=== PATIENT | female | born 1975 | race Caucasian/White ===

== ENCOUNTER 2017-05-22 23:54 | Inpatient (IN) | payer OTHER ==
[~2017-05-22] VITALS: Ht 160 cm; Wt 76.0 kg
[2017-05-22 23:55] VITALS: BP 123/83; PULSE 91; RESP 16; TEMP 98.1; O2SAT 99
[2017-05-23] VITALS (15 sets, daily range): BP systolic 106–116; BP diastolic 57–67; PULSE 79–116; RESP 15–18; TEMP 97.5–98.8; O2SAT 96–99
[2017-05-23] MEDS ORDERED: diphenhydrAMINE HCL 50 MG/ML VIAL IV PUSH ONE (00:15)
[2017-05-23] MEDS ORDERED: METOCLOPRAMIDE HCL 10 MG/2 ML VIAL IV PUSH ONE (00:15)
--- NOTE | 2017-05-23 00:38 | RADRPT ---
EXAM DATE/TIME: 05/23/2017 00:27 [facility] COMPARISON: No previous studies available for comparison. INDICATIONS : headaches with nausea and vomiting. RADIATION DOSE: 56.35 CTDIvol (mGy) MEDICAL HISTORY : None SURGICAL HISTORY : None. ENCOUNTER: Initial ACUITY: 1 day PAIN SCALE: 9/10 LOCATION: cranial TECHNIQUE: Multiple contiguous axial images were obtained of the head. Using automated exposure control and adj ustment of the mA and/or kV according to patient size, radiation dose was kept as low as reasonably a chievable to obtain optimal diagnostic quality images. DICOM format image data is available electro nically for review and comparison. FINDINGS: There is subarachnoid hemorrhages they are seen the sellar cistern. No mass effect or midline shift. No hydrocephalus. No acute cardiomegaly disease. CONCLUSION: 1. Positive for subarachnoid hemorrhage especially in the anterior interhemispheric fissure and supra sellar cistern. CTA pending to assess for aneurysm. Nakul Rojo MD on May 23, 2017 at 0:34 Board Certified Radiologist. This report was verified electronically.
[2017-05-23] MEDS ORDERED: HYDROmorphone HCL PF 1 MG/ML VIAL IV PUSH ONE (00:45)
[2017-05-23] MEDS ORDERED: HYDROmorphone HCL PF 2 MG/ML VIAL IV PUSH ONE (00:45)
[2017-05-23] MEDS ORDERED: LABETALOL HCL 100 MG/20 ML VIAL IV PUSH ONE (00:45)
[2017-05-23] MEDS ORDERED: ONDANSETRON HCL 4 MG/2 ML VIAL ONE (00:49)
[2017-05-23] MEDS ORDERED: ONDANSETRON HCL 4 MG/2 ML VIAL IV PUSH ONE (01:00)
[2017-05-23] MEDS ORDERED: LORazepam 2 MG/ML VIAL IV PUSH ONE (01:00)
[2017-05-23] MEDS ORDERED: IOHEXOL 350 MG/ML 10 ML VIAL (for RAD DIAG) IVCONTRAST ONE (01:14)
[2017-05-23] MEDS ORDERED: CHLORHEXIDINE GLUCONATE 2 % 1 PACK (2 CLOTHS) TOP PRN (01:15)
[2017-05-23] MEDS ORDERED: SODIUM CHLORIDE 0.9% FLUSH 10 ML FLUSH IV FLUSH PRN (01:15)
[2017-05-23] MEDS ORDERED: LACTULOSE SYRUP 20 GM/30 ML CUP PO PRN (01:15)
[2017-05-23] MEDS ORDERED: ACETAMINOPHEN 325 MG TAB PO PRN (01:15)
[2017-05-23] MEDS ORDERED: RESP: ALBUTEROL 2.5 MG/IPRATROPIUM 0.5 MG NEB (PRN) INH (01:15)
[2017-05-23] MEDS ORDERED: MAGNESIUM HYDROXIDE SUSP 30 ML CUP PO PRN (01:15)
[2017-05-23] MEDS ORDERED: SODIUM CHLORIDE 0.9% FLUSH 10 ML FLUSH IVF PRN (01:15)
[2017-05-23] MEDS ORDERED: SENNOSIDES 8.6 MG TAB PO PRN (01:15)
[2017-05-23] MEDS ORDERED: MISCELLANEOUS NURSING INFORMATION XX SCH (01:15)
[2017-05-23] MEDS ORDERED: BISACODYL 10 MG SUPP RECTAL PRN (01:15)
[2017-05-23] MEDS ORDERED: ONDANSETRON HCL 4 MG/2 ML VIAL IV PUSH PRN (01:15)
--- NOTE | 2017-05-23 01:23 | PD ---
HPI . Headache Chief Complaint: Headache Time Seen by Provider: 00:09 Travel History International Travel<30 days: No Contact w/Intl Traveler<30days: No Traveled to known affect area: No History of Present Illness HPI 41-year-old female. Past medical history complains of having sudden onset headache while climbing stairs. Patient flew down from [facility] today. The patient has no history of head trauma, no history of aneurysms or bleeding dyscrasias, no family history of same. Patient denies any focal weakness numbness or tingling. Headache is frontal. Denies any photophobia no seizure activity. Patient has no fever no chills no rashes no stiff neck PFSH Past Medical History Narrative Medical Past medical history reviewed Cardiovascular Problems: Yes (SVT) Thyroid Disease: Yes (HYPO) Tetanus Vaccination: < 5 Years Influenza Vaccination: Yes ?: Not LMP: 05/21/17 Past Surgical History Surgical History: No Previous Surgery Social History Alcohol Use: Yes Tobacco Use: No Substance Use: No Allergies-Medications (Allergen,Severity, Reaction): Coded Allergies: No Known Allergies (Unverified , 05/22/17) Narrative Medication Allergies and medications reviewed Review of Systems Except as stated in HPI: all other systems reviewed are Neg General / Constitutional: No: Fever Eyes: No: Visual changes HENT: Positive: Headaches Cardiovascular: No: Chest Pain or Discomfort Respiratory: No: Shortness of Breath Gastrointestinal: No: Abdominal Pain Genitourinary: No: Dysuria Musculoskeletal: No: Pain Skin: No Rash Neurologic: No: Weakness Psychiatric: No: Depression Endocrine: No: Polydipsia Hematologic/Lymphatic: No: Easy Bruising Physical Exam Narrative GENERAL: Awake alert oriented 3 no acute distress however patient appears uncomfortable. Vital signs afebrile normal and stable SKIN: Warm and dry. Is normal no diaphoresis cyanosis or pallor HEAD: Atraumatic. Normocephalic. EYES: Pupils equal and round. No scleral icterus. No injection or drainage. ENT: No nasal bleeding or discharge. Mucous membranes pink and moist. NECK: Trachea midline. No JVD. Supple nontender full range of motion no bruits CARDIOVASCULAR: Regular rate and rhythm. S1-S2 no murmurs rubs or gallops RESPIRATORY: No accessory muscle use. Clear to auscultation. Breath sounds equal bilaterally. GASTROINTESTINAL: Abdomen soft, non-tender, nondistended. Hepatic and splenic margins not palpable. MUSCULOSKELETAL: Extremities without clubbing, cyanosis, or edema. No obvious deformities. NEUROLOGICAL: Awake and alert. No obvious cranial nerve deficits. Motor grossly within normal limits. Five out of 5 muscle strength in the arms and legs. Normal speech. PSYCHIATRIC: Appropriate mood and affect; insight and judgment normal. Data Data Last Documented VS Vital Signs Date Time Temp Pulse Resp B/P (MAP) Pulse Ox O2 Delivery O2 Flow Rate FiO2 05/22/17 23:55 98.1 91 16 123/83 (96) 99 Room Air Orders Orders Iv Access Insert/Monitor (05/23/17 00:09) Metoclopramide Inj (Reglan Inj) (05/23/17 00:15) Diphenhydramine Inj (Benadryl Inj) (05/23/17 00:15) Ct Brain W/O Iv Contrast(Rout) (05/23/17 ) Cta Brain W Iv Contrast W 3d (05/23/17 ) Hydromorphone Pf Inj (Dilaudid Pf Inj) (05/23/17 00:45) Admit Order (Ed Use Only) (05/23/17 00:39) Labetalol Inj (Trandate Inj) (05/23/17 00:45) Cta Neck W Iv Contrast W 3d (05/23/17 ) Ondansetron Inj (Zofran Inj) (05/23/17 00:49) Ondansetron Inj (Zofran Inj) (05/23/17 01:00) Lorazepam Inj (Ativan Inj) (05/23/17 01:00) Complete Blood Count With Diff (05/23/17 01:10) Comprehensive Metabolic Panel (05/23/17 01:10) Beta Hcg (Quant/Titer) (05/23/17 01:10) Prothrombin Time / Inr (Pt) (05/23/17 01:10) Act Partial Throm Time (Ptt) (05/23/17 01:10) Ecg Monitoring (05/23/17 01:10) Oximetry (05/23/17 01:10) Sodium Chloride 0.9% Flush (Ns Flush) (05/23/17 01:15) Iohexol 350 Inj (Omnipaque 350 Inj) (05/23/17 01:14) Admit To Inpatient (05/23/17 ) Code Status (05/23/17 01:11) Vital Signs (Adult) PARVIZ.Q1H (05/23/17 01:11) Activity Bed Rest (05/23/17 01:11) Elevate Head Of Bed (05/23/17 01:11) Neuro Checks . ORDERED (05/23/17 01:11) Diet Npo (05/23/17 Breakfast) Ns + Kcl 20 Meq Inj (Ns + Kcl 20 Meq Inj (05/23/17 01:11) Sodium Chloride 0.9% Flush (Ns Flush) (05/23/17 01:15) Sodium Chloride 0.9% Flush (Ns Flush) (05/23/17 09:00) Acetaminophen (Tylenol) (05/23/17 01:15) Acetamin-Hydrocod 325-5 Mg (Natalbany 5-325 (05/23/17 01:15) Morphine Inj (Morphine Inj) (05/23/17 01:15) Famotidine Inj (Pepcid Inj) (05/23/17 09:00) Ondansetron Inj (Zofran Inj) (05/23/17 01:15) Metoclopramide Inj (Reglan Inj) (05/23/17 01:15) Albuterol-Ipratropium Neb (Duoneb Neb) (05/23/17 01:15) Complete Blood Count With Diff (05/24/17 04:00) Basic Metabolic Panel (Bmp) (05/24/17 04:00) Chest, Single Ap (05/23/17 06:00) Electrocardiogram (05/23/17 ) Resp Oxygen Simba C Titrat 1-4 L (05/23/17 ) Resp Pulse Oximetry (05/23/17 01:11) Clerical Clerk / Telemetry PARVIZ.Q8H (05/23/17 01:11) Scd Bilateral/Knee High PARVIZ.BID (05/23/17 01:11) ^ Initiate Protocol (05/23/17 01:11) Instruction (05/23/17 01:11) Misc Nursing Information (05/23/17 01:15) Chlorhexidine 2% Cloth (Chlorhexidine 2% (05/23/17 04:00) Chlorhexidine 2% Cloth (Chlorhexidine 2% (05/23/17 01:15) Mrsa Pcr Surveillance (05/23/17 01:11) Docusate Sodium-Senna (Malini-Colace) (05/23/17 09:00) Magnesium Hydroxide Liq (Milk Of Magnesi (05/23/17 01:15) Sennosides (Senokot) (05/23/17 01:15) Bisacodyl Supp (Dulcolax Supp) (05/23/17 01:15) Lactulose Liq (Lactulose Liq) (05/23/17 01:15) Inpatient Certification (05/23/17 ) [facility] Medical Decision Making Medical Screen Exam Complete: Yes Emergency Medical Condition: Yes Medical Record Reviewed: Yes Differential Diagnosis Subarachnoid hemorrhage, migraine headache, tension headache, sinusitis Narrative Course CT head performed shortly after patient's presentation, significant for frontal lobe subarachnoid hemorrhage. CTA performed. Case discussed with neurosurgery , case discussed with ICU, admitted with neurosurgery consult. Patient given allotted 1 mg IV push, Ativan 1 mg IV push, labetalol 5 mg IV push. Patient significant more comfortable after the above medications IV. Diagnosis Primary Impression: Subarachnoid hemorrhage Admitting Information Admitting Physician Requests: Admit Condition: Critical Juno Meraz MD May 23, 2017 01:23
[2017-05-23] MEDS ORDERED: ATEN25TA PO (01:24)
[2017-05-23 01:39] LABS: AUTOMATED NEUTROPHIL # 5.1 TH/MM3 (1.8-7.7); BASOPHIL # 0.1 TH/MM3 (0-0.2); BASOPHIL % 0.7 % (0.0-2.0); HEMATOCRIT 38.5 % (35.0-46.0); HEMOGLOBIN 13.1 GM/DL (11.6-15.3); LYMPH % 37.1 % (9.0-44.0); LYMPHOCYTE # 3.4 TH/MM3 (1.0-4.8); MEAN CELL VOLUME 94.1 FL (80.0-100.0); MEAN PLATELET VOLUME 7.1 FL (7.0-11.0); MONO % 6.7 % (0.0-8.0); MONOCYTE # 0.6 TH/MM3 (0-0.9); NEUT % 55.5 % (16.0-70.0); PLATELET COUNT 287 TH/MM3 (150-450); RED BLOOD COUNT 4.09 MIL/MM3 (4.00-5.30); RED CELL DISTRIBUTION WIDTH 13.4 % (11.6-17.2); WHITE BLOOD COUNT 9.1 TH/MM3 (4.0-11.0)
[2017-05-23 01:48] LABS: PROTHROMBIN TIME - PATIENT 10.1 SEC (9.8-11.6)
--- NOTE | 2017-05-23 01:51 | RADRPT ---
EXAM DATE/TIME: 05/23/2017 01:05 [facility] COMPARISON: No previous studies available for comparison. INDICATIONS : Subarchnoid hemorrhage. Evaluate for anuersym. IV CONTRAST: 80 cc Omnipaque 350 (iohexol) IV ; Cumulative dose for multiple exams. RADIATION DOSE: 11.64 CTDIvol (mGy) ; Combined studies MEDICAL HISTORY : None SURGICAL HISTORY : None. ENCOUNTER: Initial ACUITY: 1 day PAIN SCALE: 9/10 LOCATION: cranial TECHNIQUE: Volumetric scanning was performed using a multi-row detector CT scanner. The data was post processed with a variety of visualization algorithms including full volume maximum intensity projection, multi -planar sliding thin slab reformation, curved planar reformation, and surface rendering techniques. Using automated exposure control and adjustment of the mA and/or kV according to patient size, radiat ion dose was kept as low as reasonably achievable to obtain optimal diagnostic quality images. DICO M format image data is available electronically for review and comparison. FINDINGS: There is excellent visualization of the major intracranial arteries out to the second-order branch ve ssels. There is no evidence for aneurysm, vessel truncation or stenosis, and no evidence for vascula r malformation. CONCLUSION: 1. No aneurysm identified on CTA brain. There is subarachnoid hemorrhage present. Nakul Rojo MD on May 23, 2017 at 1:37 Board Certified Radiologist. This report was verified electronically.
--- NOTE | 2017-05-23 01:54 | RADRPT ---
EXAM DATE/TIME: 05/23/2017 01:08 [facility] COMPARISON: No previous studies available for comparison. INDICATIONS : Subarchnoid hemorrhage. Evaluate for stenosis. IV CONTRAST: 80 cc Omnipaque 350 (iohexol) IV ; Cumulative dose for multiple exams. RADIATION DOSE: 11.64 CTDIvol (mGy) ; Combined studies MEDICAL HISTORY : None SURGICAL HISTORY : None. ENCOUNTER: Initial ACUITY: 1 day PAIN SCALE: 0/10 LOCATION: neck Elevated flow velocities and ICA/CCA ratios have been found to correlate with increased degrees of vessel stenosis, calculated as percentage of diameter relative to a normal segment of distal ICA/CCA. TECHNIQUE: Volumetric scanning was performed using a multirow detector CT scanner. The data was post processed with a variety of visualization algorithms including full-volume maximum intensity projection, multip lanar sliding thin-slab reformation, curved-planar reformation, and surface-rendering techniques. Us ing automated exposure control and adjustment of the mA and/or kV according to patient size, radiatio n dose was kept as low as reasonably achievable to obtain optimal diagnostic quality images. DICOM f ormat image data is available electronically for review and comparison. FINDINGS: AORTIC ARCH: There is a three-vessel origin of the great vessels from the aorta. No evidence of ostial narrowing. RIGHT CAROTID: The common carotid artery is intact. The carotid bulb has a normal configuration without ulceration o r narrowing. The internal carotid artery lumen is smooth without stenosis. The external carotid maximus ry is intact. LEFT CAROTID: The common carotid artery is intact. The carotid bulb has a normal configuration without ulceration or narrowing. The internal carotid artery lumen is smooth without stenosis. The external carotid ar [place] is intact. VERTEBRALS: The vertebral arteries have a symmetric diameter. No stenotic lesions are seen. CONCLUSION: Normal examination for a patient of this age. Nakul Rojo MD on May 23, 2017 at 1:49 Board Certified Radiologist. This report was verified electronically.
--- NOTE | 2017-05-23 01:54 | HHI.HP ---
HPI Service Critical Care Medicine Primary Care Physician Non-Staff Admission Diagnosis SubArachnoid Hemorrhage Diagnosis: Travel History International Travel<30 Days: No Contact w/Intl Traveler <30 Da: No Traveled to Known Affected Are: No History of Present Illness HPI 41-year-old female. Past medical history complains of having sudden onset headache while climbing stairs. Patient flew down from [facility] today. The patient has no history of head trauma, no history of aneurysms or bleeding dyscrasias, no family history of same. Patient denies any focal weakness numbness or tingling. Headache is frontal. Denies any photophobia no seizure activity. Patient has no fever no chills no rashes no stiff neck. Head CT done in the ER revealed subarachnoid hemorrhage. CTA brain ordered. Neurosurgery was contacted by ER physician already. Patient accepted for admission by critical care medicine service. I evaluated the patient in the ER. At that time she was laying in the ER stretcher, complaining of a headache for out of 10 in intensity. Denied any visual or speech disturbance or any focal weakness involving her extremities. Denied any paresthesias. She did have nausea earlier. [facility] Past Medical History Narrative Medical Past medical history reviewed Cardiovascular Problems: Yes (SVT) Thyroid Disease: Yes (HYPO) Tetanus Vaccination: < 5 Years Influenza Vaccination: Yes ?: Not LMP: 05/21/17 Past Surgical History Surgical History: No Previous Surgery Social History Alcohol Use: Yes Tobacco Use: No Substance Use: No Allergies-Medications (Allergen,Severity, Reaction): Coded Allergies: No Known Allergies (Unverified , 05/22/17) Narrative Medication Allergies and medications reviewed Review of Systems Except as stated in HPI: all other systems reviewed are Neg General / Constitutional: No: Fever Eyes: No: Visual changes HENT: Positive: Headaches Cardiovascular: No: Chest Pain or Discomfort Respiratory: No: Shortness of Breath Gastrointestinal: No: Abdominal Pain Genitourinary: No: Dysuria Musculoskeletal: No: Pain Skin: No Rash Neurologic: No: Weakness Psychiatric: No: Depression Endocrine: No: Polydipsia Hematologic/Lymphatic: No: Easy Bruising Review of Systems ROS as per HPI Physical Exam Vital Signs Vital Signs Date Time Temp Pulse Resp B/P (MAP) Pulse Ox O2 Delivery O2 Flow Rate FiO2 05/23/17 01:30 98 05/23/17 01:24 98 Room Air 05/22/17 23:55 98.1 91 16 123/83 (96) 99 Room Air Physical Exam Physical Exam Narrative GENERAL: Awake alert oriented 3 no acute distress however patient appears uncomfortable. Vital signs afebrile normal and stable SKIN: Warm and dry. Is normal no diaphoresis cyanosis or pallor HEAD: Atraumatic. Normocephalic. EYES: Pupils equal and round. No scleral icterus. No injection or drainage. ENT: No nasal bleeding or discharge. Mucous membranes pink and moist. NECK: Trachea midline. No JVD. Supple nontender full range of motion no bruits CARDIOVASCULAR: Regular rate and rhythm. S1-S2 no murmurs rubs or gallops RESPIRATORY: No accessory muscle use. Clear to auscultation. Breath sounds equal bilaterally. GASTROINTESTINAL: Abdomen soft, non-tender, nondistended. Hepatic and splenic margins not palpable. MUSCULOSKELETAL: Extremities without clubbing, cyanosis, or edema. No obvious deformities. NEUROLOGICAL: Awake and alert. No obvious cranial nerve deficits. Motor grossly within normal limits. Five out of 5 muscle strength in the arms and legs. Normal speech. PSYCHIATRIC: Appropriate mood and affect; insight and judgment normal. Laboratory Laboratory Tests Test 05/23/17 01:10 White Blood Count 9.1 Red Blood Count 4.09 Hemoglobin 13.1 Hematocrit 38.5 Mean Corpuscular Volume 94.1 Mean Corpuscular Hemoglobin 32.0 Mean Corpuscular Hemoglobin Concent 34.0 Red Cell Distribution Width 13.4 Platelet Count 287 Mean Platelet Volume 7.1 Neutrophils (%) (Auto) 55.5 Lymphocytes (%) (Auto) 37.1 Monocytes (%) (Auto) 6.7 Eosinophils (%) (Auto) 0.0 Basophils (%) (Auto) 0.7 Neutrophils # (Auto) 5.1 Lymphocytes # (Auto) 3.4 Monocytes # (Auto) 0.6 Eosinophils # (Auto) 0.0 Basophils # (Auto) 0.1 CBC Comment DIFF FINAL Differential Comment Result Diagram: 05/23/[address] with subarachnoid hemorrhage CTA brain results pending Caprini VTE Risk Assessment Caprini VTE Risk Assessment: No/Low Risk (score <= 1) VTE Pharm Contraindication: Hemorrhage Caprini Risk Assessment Model Point Value = 1 Point Value = 2 Point Value = 3 Point Value = 5 Age 41-60 Minor surgery BMI > 25 kg/m2 Swollen legs Varicose veins or History of unexplained or recurrent spontaneous Oral contraceptives or hormone replacement Sepsis (< 1 month) Serious lung disease, including pneumonia (< 1 month) Abnormal pulmonary function Acute myocardial infarction Congestive heart failure (< 1 month) History of inflammatory bowel disease Medical patient at bed rest Age 61-74 Arthroscopic surgery Major open surgery (> 45 min) Laparoscopic surgery (> 45 min) Malignancy Confined to bed (> 72 hours) Immobilizing plaster cast Central venous access Age >= 75 History of VTE Family history of VTE Factor V Leiden Prothrombin [id number] Lupus anticoagulant Anticardiolipin antibodies Elevated serum homocysteine Heparin-induced thrombocytopenia Other congenital or acquired thrombophilia Stroke (< 1 month) Elective arthroplasty Hip, pelvis, or leg fracture Acute spinal cord injury (< 1 month) Prophylaxis Regimen Total Risk Factor Score Risk Level Prophylaxis Regimen 0-1 Low Early ambulation 2 Moderate Order ONE of the following: *Sequential Compression Device (SCD) *Heparin 5000 units SQ BID 3-4 Higher Order ONE of the following medications: *Heparin 5000 units SQ TID *Enoxaparin/Lovenox 40 mg SQ daily (WT < 150 kg, CrCl > 30 mL/min) *Enoxaparin/Lovenox 30 mg SQ daily (WT < 150 kg, CrCl > 10-29 mL/min) *Enoxaparin/Lovenox 30 mg SQ BID (WT < 150 kg, CrCl > 30 mL/min) AND/OR *Sequential Compression Device (SCD) 5 or more Highest Order ONE of the following medications: *Heparin 5000 units SQ TID (Preferred with Epidurals) *Enoxaparin/Lovenox 40 mg SQ daily (WT < 150 kg, CrCl > 30 mL/min) *Enoxaparin/Lovenox 30 mg SQ daily (WT < 150 kg, CrCl > 10-29 mL/min) *Enoxaparin/Lovenox 30 mg SQ BID (WT < 150 kg, CrCl > 30 mL/min) AND *Sequential Compression Device (SCD) Assessment and Plan Assessment and Plan 41 year-old female with: Subarachnoid hemorrhage Hypothyroidism History of SVT Plan: Neuro: Awaiting CTA head results to evaluate for aneurysm. Further recommendations per interventional radiology and neurosurgery based on CT findings. Repeat head CT in a.m. for follow-up on subarachnoid hemorrhage. Neurosurgery consult. ER physician has already spoken with Dr. Durán- neurosurgery. We'll initiate nimodipine. Further neuro imaging and management per neurosurgery and interventional radiology. Cardiovascular: IV hydration, watch for hypotension. Labetalol when necessary to keep SBP below 150 mmHg. Nicardipine drip keep SBP below 1 50 mmHg as needed. Pulmonary: Currently protecting airway. Bronchodilators as needed. GI/liver: Nothing by mouth for now. Renal/: Follow urine output, monitor and replete electrolytes, follow BUN/ creatinine. ID: No indication for antibiotics at this time. Heme: Follow CBC and coags. Endocrine: Watch for hyperglycemia, SSI for glycemic control if needed. Prophylaxis: Pepcid, SCDs. No heparin or Lovenox in view of subarachnoid hemorrhage till cleared by neurosurgery Condition critical Time for critical care excluding procedures 40 minutes Hernesto Waggoner MD May 23, 2017 01:54
[2017-05-23] MEDS ORDERED: LEVO100T5 PO (01:55)
[2017-05-23 01:59] LABS: ALBUMIN 3.9 GM/DL (3.4-5.0); ALT (GPT) 21 U/L (10-53); AST (GOT) 23 U/L (15-37); BICARBONATE 26.8 MEQ/L (21.0-32.0); BLOOD UREA NITROGEN 9 MG/DL (7-18); CALCIUM 8.2 MG/DL (8.5-10.1); CHLORIDE 103 MEQ/L (98-107); CREATININE 0.77 MG/DL (0.50-1.00); GLOMERULAR FILTRATION RATE 83 ML/MIN (>89); GLUCOSE,RANDOM 83 MG/DL (74-106); PHOSPHORUS 2.9 MG/DL (2.5-4.9); SODIUM (NA) 136 MEQ/L (136-145)
[2017-05-23] MEDS ORDERED: niMODipine 30 MG CAP PO SCH (02:00)
[2017-05-23] MEDS ORDERED: niCARdipine INJ 25 MG in SODIUM CHLOR 0.9% 250 ML INJ 240 ML IV PRN (02:00)
[2017-05-23] MEDS ORDERED: LABETALOL HCL 100 MG/20 ML VIAL IV PUSH PRN (02:00)
[2017-05-23] MEDS: NS + KCL 20 MEQ INJ 1,000 ML IV SCH ×3 (02:01→21:02)
[2017-05-23 02:03] LABS: ALKALINE PHOSPHATASE 75 U/L (45-117); TOTAL BILIRUBIN ADULT 0.2 MG/DL (0.2-1.0); TOTAL PROTEIN 7.7 GM/DL (6.4-8.2)
[2017-05-23] MEDS: METOCLOPRAMIDE HCL 10 MG/2 ML VIAL IV PUSH PRN ×2 (02:32→21:02)
--- NOTE | 2017-05-23 03:56 | HHI.NSPN ---
History Chief Complaint: Severe headache Interval History Patient presents to the ER with severe frontal headache. See formal consult for details Exam Results Vital Signs Date Time Temp Pulse Resp B/P (MAP) Pulse Ox O2 Delivery O2 Flow Rate FiO2 05/23/17 03:00 05/23/17 01:52 87 16 98 Nasal Cannula 2.00 05/22/17 23:55 98.1 Physical Examination Neurological exam reveals that the patient is lethargic. Awakens easily. Follows commands well. Oriented 3. Speech is fluent. Affect mildly depressed. Right-handed Cranial nerves intact Motor 5/5 Sensory intact to touch Deep tendon reflexes 1+ at all sites except the ankles which are trace Lab, Micro, Other Results CT of the head shows evidence of subarachnoid hemorrhage in the perimesencephalic cisterns and anterior interhemispheric space CT of the neck is unremarkable CT of the head shows no evidence of aneurysm Medical Decision Making Impression and Plan Impression: Spontaneous subarachnoid hemorrhage. No clear evidence for aneurysm. Please see formal consult when available Recommendations: Keep head elevated Neurochecks every hour Nimotop as ordered Maintain blood pressure control We will follow patient with you Thomas Durán MD May 23, 2017 03:56
[2017-05-23] MEDS: CHLORHEXIDINE GLUCONATE 2 % 1 PACK (2 CLOTHS) TOP SCH ×2 (04:00→19:57)
--- NOTE | 2017-05-23 04:34 | RADRPT ---
EXAM DATE/TIME: 05/23/2017 03:20 [facility] COMPARISON: No previous studies available for comparison. INDICATIONS : Evaluate for pneumonia- Headaches MEDICAL HISTORY : None. SURGICAL HISTORY : None. ENCOUNTER: Initial ACUITY: 1 day PAIN SCORE: 7/10 LOCATION: Bilateral chest FINDINGS: A single view of the chest demonstrates the lungs to be symmetrically aerated without evidence of mas s, infiltrate or effusion. The cardiomediastinal contours are unremarkable. Osseous structures are intact. CONCLUSION: No acute disease. Nakul Rojo MD on May 23, 2017 at 4:32 Board Certified Radiologist. This report was verified electronically.
[2017-05-23] MEDS: ACETAMINOPHEN/HYDROcodone 325 MG/5 MG TAB PO PRN ×4 (05:18→22:00)
[2017-05-23] MEDS: niMODipine 30 MG CAP PO SCH ×5 (06:09→20:51)
--- NOTE | 2017-05-23 07:10 | MB ---
cc: JACINTA BOYLE MD DATE OF CONSULTATION: 05/23/2017 CHIEF COMPLAINT: Headache. HISTORY OF PRESENT ILLNESS: This is a 41 year-old female patient presented to the emergency room with history of sudden severe headache. The headache was the worse she has ever had. The headache was in the frontal area. She had several episodes of vomiting. She denies any photophobia or any other type of symptomatology. CT scan of the brain was performed which showed subarachnoid hemorrhage and because of this, neurosurgery consult was placed, and the patient was admitted. PAST MEDICAL HISTORY: Remarkable for SVT and thyroid disease. PAST SURGICAL HISTORY: No previous surgery. 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 She uses alcohol occasionally. No tobacco use. No illegal drug use. ALLERGIES: None known. MEDICATIONS: Per the chart. REVIEW OF SYSTEMS: Unremarkable except as pertaining to the history as above. PHYSICAL EXAMINATION: VITAL SIGNS: Temperature 98.1, pulse 91, respiratory rate 16, blood pressure 123/83. GENERAL: A female patient who is slightly lethargic. HEENT: Unremarkable. NECK: Mild discomfort upon flexion. No significant rigidity seen. CHEST: Symmetric. LUNGS: Clear. HEART: Regular rhythm with normal heart sounds. ABDOMEN: Soft, nontender. EXTREMITIES: Clear. NEUROLOGIC: The patient is lethargic, follows commands well, and awakens easily. She is oriented x3. Speech is fluent. Affect is mildly depressed. Cranial nerves II through XII intact. Motor exam is 5+/5. Sensory exam intact to touch. Deep tendon reflexes are 1+ at all sides except the ankles which are trace. She has a negative Babinski bilaterally. IMAGING STUDIES: Review of CT scan of the brain shows evidence of subarachnoid blood in the perimesencephalic cisterns and anterior interhemispheric space. No significant mass effect. CTA of the neck was unremarkable. CTA of the head showed no clear evidence for aneurysm. OVERALL IMPRESSION Spontaneous subarachnoid hemorrhage. PLAN: Admit the patient for observation. She should be placed on Nimotop with neuro checks every hour. Blood pressure should remained controlled. Head should remain elevated to 30 degrees. MD CHEKO Cedillo/JEREL /3:41 AM /6:49 AM MTDD
[2017-05-23] MEDS: SODIUM CHLORIDE 0.9% FLUSH 10 ML FLUSH IV FLUSH SCH ×2 (08:30→20:51)
[2017-05-23] MEDS: MORPHINE SULFATE 2 MG/ML INJ IV PUSH PRN (08:34)
[2017-05-23] MEDS: DOCUSATE SODIUM 50 MG/SENNA 8.6 MG TAB PO SCH ×4 (08:35→20:51)
[2017-05-23] MEDS: FAMOTIDINE 20 MG/2 ML VIAL IV PUSH SCH ×2 (08:35→20:50)
[2017-05-23] MEDS ORDERED: VENL75TA PO (10:48)
--- NOTE | 2017-05-23 11:00 | HHI.NSPN ---
History Chief Complaint: Severe headache Interval History Patient seen earlier today. She continues to complain of headache Exam Results Vital Signs Date Time Temp Pulse Resp B/P (MAP) Pulse Ox O2 Delivery O2 Flow Rate FiO2 05/23/17 10:00 79 05/23/17 08:29 99 21 05/23/17 08:00 97.5 18 106/57 (73) 05/23/17 07:00 Room Air 05/23/17 01:52 2.00 Intake and Output 05/23/17 05/23/17 05/24/17 08:00 16:00 00:00 Intake Total 50 ml Balance 50 ml Physical Examination Patient is much more awake and alert. Follows commands well. Speech is fluent. Oriented 3. Cranial nerves intact. Moves all extremities well. Medical Decision Making Impression and Plan Impression: Spontaneous subarachnoid hemorrhage. No clear evidence for aneurysm. Discussed with patient and her sister present condition. Reviewed CT imaging with the patient and her sister using a nurse computer. Clinically patient appears improved Recommendations: Continue neurological observation Repeat CT in a.m. Will need repeat angiography in 5-10 days Thomas Durán MD May 23, 2017 11:00
[2017-05-23] MEDS: ONDANSETRON HCL 4 MG/2 ML VIAL IV PUSH PRN ×4 (11:59→23:12)
--- NOTE | 2017-05-23 14:40 | EKG ---
Date Performed: 05/23/2017 Time Performed: 01:31:22 PTAGE: 41 years EKG: Sinus rhythm NORMAL ECG NO PREVIOUS TRACING DOCTOR: John Morales Interpretating Date/Time 05/23/2017 14:38:02
[2017-05-24] VITALS (13 sets, daily range): BP systolic 104–126; BP diastolic 58–72; PULSE 78–100; RESP 12–22; TEMP 98–98.8; O2SAT 96–98
[2017-05-24] MEDS: niMODipine 30 MG CAP PO SCH ×6 (01:35→22:17)
[2017-05-24] MEDS: METOCLOPRAMIDE HCL 10 MG/2 ML VIAL IV PUSH PRN ×2 (01:35→11:16)
[2017-05-24] MEDS: ACETAMINOPHEN/HYDROcodone 325 MG/5 MG TAB PO PRN ×2 (02:29→06:55)
[2017-05-24] MEDS: ONDANSETRON HCL 4 MG/2 ML VIAL IV PUSH PRN ×5 (04:35→22:17)
--- NOTE | 2017-05-24 04:58 | RADRPT ---
EXAM DATE/TIME: 05/24/2017 04:22 [facility] COMPARISON: CT BRAIN W/O CONTRAST, May 23, 2017, 0:27. INDICATIONS : Follow up hemorrhage. RADIATION DOSE: 35.93 CTDIvol (mGy) MEDICAL HISTORY : Cardiovascular disease. SURGICAL HISTORY : None. ENCOUNTER: Subsequent ACUITY: 1 day PAIN SCALE: 0/10 LOCATION: cranial TECHNIQUE: Multiple contiguous axial images were obtained of the head. Using automated exposure control and adj ustment of the mA and/or kV according to patient size, radiation dose was kept as low as reasonably a chievable to obtain optimal diagnostic quality images. DICOM format image data is available electro nically for review and comparison. FINDINGS: CEREBRUM: The ventricles are normal for age. No evidence of midline shift, mass lesion,or acute infarction. Th e subtle subarachnoid hemorrhage is less conspicuous and not well-visualized on the current study. Th ere is mild residual in the suprasellar region. No extra-axial fluid collections are seen. POSTERIOR FOSSA: The cerebellum and brainstem are intact. The 4th ventricle is midline. The cerebellopontine angle i s unremarkable. EXTRACRANIAL: The visualized portion of the orbits is intact. SKULL: The calvaria is intact. No evidence of skull fracture. CONCLUSION: 1. Interval improvement sub-arachnoid hemorrhage with minimal residual. 2. No new hemorrhage or mass effect. Tony Gabriel MD on May 24, 2017 at 4:54 Board Certified Radiologist. This report was verified electronically.
[2017-05-24 05:13] LABS: AUTOMATED NEUTROPHIL # 3.8 TH/MM3 (1.8-7.7); BASOPHIL # 0.1 TH/MM3 (0-0.2); BASOPHIL % 1.1 % (0.0-2.0); HEMATOCRIT 35.4 % (35.0-46.0); HEMOGLOBIN 12.1 GM/DL (11.6-15.3); LYMPH % 41.9 % (9.0-44.0); LYMPHOCYTE # 3.1 TH/MM3 (1.0-4.8); MEAN CELL VOLUME 94.5 FL (80.0-100.0); MEAN CORPUSCULAR HEMOGLOBIN 32.4 PG (27.0-34.0); MEAN CORPUSCULAR HGB CONC 34.3 % (32.0-36.0); MEAN PLATELET VOLUME 7.2 FL (7.0-11.0); MONO % 6.4 % (0.0-8.0); MONOCYTE # 0.5 TH/MM3 (0-0.9); NEUT % 50.6 % (16.0-70.0); PLATELET COUNT 271 TH/MM3 (150-450); RED BLOOD COUNT 3.75 MIL/MM3 (4.00-5.30); RED CELL DISTRIBUTION WIDTH 13.7 % (11.6-17.2); WHITE BLOOD COUNT 7.5 TH/MM3 (4.0-11.0)
[2017-05-24 05:35] LABS: BICARBONATE 25.8 MEQ/L (21.0-32.0); CALCIUM 8.3 MG/DL (8.5-10.1); CREATININE 0.74 MG/DL (0.50-1.00)
[2017-05-24] MEDS: NS + KCL 20 MEQ INJ 1,000 ML IV SCH ×2 (05:56→15:57)
--- NOTE | 2017-05-24 07:26 | HHI.CCPN ---
Subjective Remarks/Hospital Course 05/23: 41-year-old female. Past medical history complains of having sudden onset headache while climbing stairs. Patient flew down from [facility] today. The patient has no history of head trauma, no history of aneurysms or bleeding dyscrasias, no family history of same. Patient denies any focal weakness numbness or tingling. Headache is frontal. Denies any photophobia no seizure activity. Patient has no fever no chills no rashes no stiff neck. Head CT done in the ER revealed subarachnoid hemorrhage. CTA brain ordered. Neurosurgery was contacted by ER physician already. Patient accepted for admission by critical care medicine service. I evaluated the patient in the ER. At that time she was laying in the ER stretcher, complaining of a headache for out of 10 in intensity. Denied any visual or speech disturbance or any focal weakness involving her extremities. Denied any paresthesias. She did have nausea earlier. 05/24: No events over the night. Patient still c/o NICOLE and some nausea and vomiting. No other complaints. Repeat CT head in AM with improved SAH. Objective Vital Signs Date Time Temp Pulse Resp B/P (MAP) Pulse Ox O2 Delivery O2 Flow Rate FiO2 05/24/17 06:00 92 05/24/17 04:00 98.8 12 105/58 (74) 96 05/23/17 20:01 21 05/23/17 19:00 Room Air 05/23/17 01:52 2.00 Intake and Output 05/24/17 05/24/17 05/25/17 08:00 16:00 00:00 Intake Total 1225 ml Balance 1225 ml Result Diagram: 05/24/17 0348 05/24/17 0348 Imaging Head CTA: No aneurysm identified on CTA brain. There is subarachnoid hemorrhage present. Last [address] 05/24/17 0600 Signed Impressions: Service Date/Time: Wednesday, May 24, 2017 04:22 - CONCLUSION: 1. Interval improvement sub-arachnoid hemorrhage with minimal residual. 2. No new hemorrhage or mass effect. Tony Gabriel MD Objective Remarks Physical Exam General - middle age lady, awake, in no distress HEENT - pupils equal, reactive, sclerae anicteric, neck supple, no nuchal rigidity, neck veins not distended, no carotid bruit, MMM, no thrush CV - regular S1, S2, no murmurs Chest - clear b/l, good air entry, no wheezes Abdomen - soft, non-tender, non-distended, BS present, no hepatomegaly, no splenomegaly Skin - no rashes, no cyanosis Extremities - warm and well perfused, no edema, + peripheral pulses, no clubbing Neuro - awake, alert and oriented X 3, motor 5/5 over all extremities, sensation is intact, no pronator drift, smile symmetric, EOMI, tongue midline, shrugs shoulders, speech and hearing intact A/P Assessment and Plan 1. Spontaneous subarachnoid hemorrhage 2. Hypothyroidism 3. History of SVT Plan: 1. HOB elevation, maintain normothermia, avoid agitation 2. Nimodipine 3. Further imaging per NS if needed 4. Stat CTH with any change in neuro status 5. Neuro checks 6. Glycemic control 7. Pepcid, SCDs. No heparin or Lovenox in view of subarachnoid hemorrhage till cleared by neurosurgery Jacinto Jonas MD May 24, 2017 07:26
[2017-05-24] MEDS: FAMOTIDINE 20 MG/2 ML VIAL IV PUSH SCH ×2 (07:55→20:21)
[2017-05-24] MEDS: SODIUM CHLORIDE 0.9% FLUSH 10 ML FLUSH IV FLUSH SCH ×2 (07:55→20:21)
[2017-05-24] MEDS: DOCUSATE SODIUM 50 MG/SENNA 8.6 MG TAB PO SCH ×2 (07:55→20:21)
--- NOTE | 2017-05-24 11:04 | HHI.NSPN ---
(Sarmad Tidwell) History Chief Complaint: Severe headache (Sarmad Tidwell) Interval History 05/24/17: Pt complains of headaches intermittently frontal area with periods of nausea. She states the pain medication and antiemetics help. No muscle weakness on one side versus the other. No numbness or paresthesias in face or extremities. (Sarmad Tidwell) Review of Systems General: Negative for: fever, chills, insomnia Respiratory: Negative for: shortness of breath, cough, sputum Cardiovascular: Negative for: chest pain Gastrointestinal: Positive for: nausea, vomitting, Negative for: diarrhea, constipation (Sarmad Tidwell) Exam Results Vital Signs Date Time Temp Pulse Resp B/P (MAP) Pulse Ox O2 Delivery O2 Flow Rate FiO2 05/24/17 06:00 92 05/24/17 04:00 98.8 12 105/58 (74) 96 05/23/17 20:01 21 05/23/17 19:00 Room Air 05/23/17 01:52 2.00 Intake and Output 05/24/17 05/24/17 05/25/17 08:00 16:00 00:00 Intake Total 1225 ml Balance 1225 ml (Sarmad Tidwell) Physical Examination General: Pt awake and alert resting in bed with stable vitals. Eyes: Pupils equal. Sclera anicteric. Resp: CTA bilaterally Heart: NSR no murmurs Abd: Soft positive bs Skin: No cyanosis or erythema Muscle: Moves all 4 extremities symmetrically with 5/5 strength. Neuro: Pt awake and alert. Sitting up in bed. Asks appropriate questions. Speech is clear and fluent. Pupils 3mm bilaterally reactive bilaterally. Follows commands well. Face symmetric. (Sarmad Tidwell) Lab, Micro, Other Results Last Impressions Head CT 05/24/17 0600 Signed Impressions: Service Date/Time: Wednesday, May 24, 2017 04:22 - CONCLUSION: 1. Interval improvement sub-arachnoid hemorrhage with minimal residual. 2. No new hemorrhage or mass effect. Tony Gabriel MD Chest X-Ray 05/23/17 0600 Signed Impressions: Service Date/Time: Tuesday, May 23, 2017 03:20 - CONCLUSION: No acute disease. Nakul Rojo MD Neck CTA 05/23/17 0000 Signed Impressions: Service Date/Time: Tuesday, May 23, 2017 01:08 - CONCLUSION: Normal examination for a patient of this age. Nakul Rojo MD Head CTA 05/23/17 0000 Signed Impressions: Service Date/Time: Tuesday, May 23, 2017 01:05 - CONCLUSION: 1. No aneurysm identified on CTA brain. There is subarachnoid hemorrhage present. Nakul Rojo MD Laboratory Tests Test 05/24/17 03:48 White Blood Count 7.5 TH/MM3 Red Blood Count 3.75 MIL/MM3 Hemoglobin 12.1 GM/DL Hematocrit 35.4 % Mean Corpuscular Volume 94.5 FL Mean Corpuscular Hemoglobin 32.4 PG Mean Corpuscular Hemoglobin Concent 34.3 % Red Cell Distribution Width 13.7 % Platelet Count 271 TH/MM3 Mean Platelet Volume 7.2 FL Neutrophils (%) (Auto) 50.6 % Lymphocytes (%) (Auto) 41.9 % Monocytes (%) (Auto) 6.4 % Eosinophils (%) (Auto) 0.0 % Basophils (%) (Auto) 1.1 % Neutrophils # (Auto) 3.8 TH/MM3 Lymphocytes # (Auto) 3.1 TH/MM3 Monocytes # (Auto) 0.5 TH/MM3 Eosinophils # (Auto) 0.0 TH/MM3 Basophils # (Auto) 0.1 TH/MM3 CBC Comment DIFF FINAL Differential Comment Blood Urea Nitrogen 5 MG/DL Creatinine 0.74 MG/DL Random Glucose 104 MG/DL Calcium Level 8.3 MG/DL Sodium Level 140 MEQ/L Potassium Level 3.8 MEQ/L Chloride Level 107 MEQ/L Carbon Dioxide Level 25.8 MEQ/L Anion Gap 7 MEQ/L Estimat Glomerular Filtration Rate 86 ML/MIN (Sarmad Tidwell) Medical Decision Making Impression and Plan A: 41 y/o FM with subarachnoid hemorrhage. Pt denies any history of trauma and not hypertensive. No aneurysm was fount on CTA brain. Follow up CT head showed resolving SAH. P: Dr. Chadwick has ordered a cerebral angiogram. Continue with close Neuro checks. Continue with Nimodipine Continue to monitor vitals. Pts usual home medications have been resumed by critical care. (Sarmad Tidwell) Attending Statement The exam, history, and the medical decision-making described in the above note were completed with the assistance of the mid-level provider. I reviewed and agree with the findings presented. I attest that I had a [id number] encounter with the patient on the same day, and personally performed and documented my assessment and findings in the medical record. Reviewed the previous CT scans as well as a CT angiogram. Follow-up CT scan the head with a resolving perimesencephalic hemorrhage also extends into the basal cisterns. No hydrocephalus noted. No underlying aneurysm noted. Relates headaches especially with any movement or trying to get out of bed. Continue with supportive care. Will obtain a conventional angiogram tomorrow to rule out any underlying vascular abnormality. 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 Answered all of her questions. She has already made arrangements for neurosurgical follow-up in [place] where she resides. (Shay Chadwick MD) Sarmad Tidwell May 24, 2017 11:03 Shay Chadwick MD May 24, 2017 13:52
[2017-05-24] MEDS: LEVOTHYROXINE SODIUM 100 MCG TAB PO SCH (11:17)
[2017-05-24] MEDS: VENLAFAXINE HCL XR 75 MG CAP PO SCH (12:09)
[2017-05-24] MEDS: PROMETHAZINE INJ 25 MG/ML VIAL IM PRN ×2 (15:00→20:22)
[2017-05-24] MEDS: MORPHINE SULFATE 2 MG/ML INJ IV PUSH PRN ×2 (15:57→22:17)
[2017-05-25] VITALS (23 sets, daily range): BP systolic 92–122; BP diastolic 55–68; PULSE 62–98; RESP 14–22; TEMP 98–98.8; O2SAT 94–98
[2017-05-25] MEDS: MORPHINE SULFATE 2 MG/ML INJ IV PUSH PRN ×5 (01:53→21:11)
[2017-05-25] MEDS: ONDANSETRON HCL 4 MG/2 ML VIAL IV PUSH PRN ×5 (01:54→21:10)
[2017-05-25] MEDS: niMODipine 30 MG CAP PO SCH ×6 (01:55→21:10)
[2017-05-25] MEDS: NS + KCL 20 MEQ INJ 1,000 ML IV SCH ×3 (02:24→21:12)
[2017-05-25] MEDS: CHLORHEXIDINE GLUCONATE 2 % 1 PACK (2 CLOTHS) TOP SCH (04:00)
[2017-05-25] MEDS: LEVOTHYROXINE SODIUM 100 MCG TAB PO SCH (05:33)
[2017-05-25] MEDS: SODIUM CHLORIDE 0.9% FLUSH 10 ML FLUSH IV FLUSH SCH ×2 (05:34→21:11)
[2017-05-25 05:51] LABS: CREATININE 0.67 MG/DL (0.50-1.00); MAGNESIUM 1.8 MG/DL (1.5-2.5)
[2017-05-25 06:47] LABS: BASOPHIL # 0.1 TH/MM3 (0-0.2); BASOPHIL % 0.7 % (0.0-2.0); EOSINOPHIL % 0.2 % (0.0-4.0); HEMOGLOBIN 12.8 GM/DL (11.6-15.3); LYMPH % 38.5 % (9.0-44.0); LYMPHOCYTE # 3.6 TH/MM3 (1.0-4.8); MEAN CELL VOLUME 96.6 FL (80.0-100.0); MEAN CORPUSCULAR HEMOGLOBIN 32.5 PG (27.0-34.0); MEAN CORPUSCULAR HGB CONC 33.7 % (32.0-36.0); MEAN PLATELET VOLUME 7.5 FL (7.0-11.0); MONO % 6.4 % (0.0-8.0); MONOCYTE # 0.6 TH/MM3 (0-0.9); NEUT % 54.2 % (16.0-70.0); PLATELET COUNT 196 TH/MM3 (150-450); RED BLOOD COUNT 3.93 MIL/MM3 (4.00-5.30); RED CELL DISTRIBUTION WIDTH 14.1 % (11.6-17.2); WHITE BLOOD COUNT 9.3 TH/MM3 (4.0-11.0)
[2017-05-25] MEDS ORDERED: MIDAZOLAM HCL 2 MG/2 ML VIAL ONE (08:05)
[2017-05-25] MEDS ORDERED: fentaNYL CITRATE 250 MCG/5 ML AMP ONE (08:05)
[2017-05-25] MEDS: VENLAFAXINE HCL XR 75 MG CAP PO SCH (09:00)
[2017-05-25] MEDS: DOCUSATE SODIUM 50 MG/SENNA 8.6 MG TAB PO SCH ×2 (09:00→21:00)
[2017-05-25] MEDS: FAMOTIDINE 20 MG/2 ML VIAL IV PUSH SCH ×2 (09:00→21:11)
[2017-05-25] MEDS ORDERED: IODIXANOL 320 MG/ML 50 ML VIAL (for RAD SPEC) I-ARTERIAL ONE (10:20)
--- NOTE | 2017-05-25 10:40 | PD.RAD ---
Post Procedure Progress Note Pre Procedure Diagnosis: (1) Subarachnoid hemorrhage Post Procedure Diagnosis: (1) Subarachnoid hemorrhage Procedure Date: May 25, 2017 Supervising Radiologist: Tip Huffman Proceduralist/Assist: Lupillo Pope RT(R), Anne Marie Lan RT(R) Anesthesia: Conscious Sedation Plan of Activity Patient to Unit: Nursing Unit Patient Condition: Good See PACS Report for procedural detail/treatment Vascular-Arterial Procedure Procedure 1 Procedure Site: Cerebral Procedure(s): Angiogram Access Access Site(s): Right Femoral Artery Closure Site(s): Right manual pressure Tip Huffman MD May 25, 2017 10:40
[2017-05-25] MEDS ORDERED: ACETAMINOPHEN 325 MG TAB PO PRN ×2 (10:45→12:00)
--- NOTE | 2017-05-25 13:03 | HHI.NSPN ---
(Sarmad Tidwell) History Chief Complaint: Severe headache (Sarmad Tidwell) Interval History 05/24/17: Pt complains of headaches intermittently frontal area with periods of nausea. She states the pain medication and antiemetics help. No muscle weakness on one side versus the other. No numbness or paresthesias in face or extremities. 05/25/17: Pt awake. Returned from angiogram. Complains of headache occipital area radiating into the eyes. No nausea. Pt states she needs something stronger than Tylenol for pain. No paresthesias in face or extremities. No weakness in extremities. (Sarmad Tidwell) Review of Systems General: Negative for: fever, chills, insomnia Respiratory: Negative for: shortness of breath, cough, sputum Cardiovascular: Negative for: chest pain Gastrointestinal: Negative for: nausea, vomitting, diarrhea, constipation ( Sarmad Tidwell) Exam Results Vital Signs Date Time Temp Pulse Resp B/P (MAP) Pulse Ox O2 Delivery O2 Flow Rate FiO2 05/25/17 11:54 88 20 104/66 (79) 96 05/25/17 10:39 98.4 05/25/17 07:00 Room Air 05/24/17 19:00 2.00 21 Intake and Output 05/25/17 05/25/17 05/26/17 08:00 16:00 00:00 Intake Total 1000 ml Balance 1000 ml (Sarmad Tidwell) Physical Examination General: Pt awake and alert resting in bed s/p angiogram today with stable vitals. Eyes: Pupils equal. Sclera anicteric. Resp: CTA bilaterally Heart: NSR no murmurs Abd: Soft positive bs Skin: No cyanosis or erythema Muscle: Moves all 4 extremities symmetrically with 5/5 strength. Neuro: Pt awake and alert. laying in bed. Speech is clear and fluent. Pupils 3mm bilaterally reactive bilaterally. Follows commands well. Face symmetric. (Sarmad Tidwell) Lab, Micro, Other Results Last Impressions Head CT 05/24/17 0600 Signed Impressions: Service Date/Time: Wednesday, May 24, 2017 04:22 - CONCLUSION: 1. Interval improvement sub-arachnoid hemorrhage with minimal residual. 2. No new hemorrhage or mass effect. Tony Gabriel MD Chest X-Ray 05/23/17 0600 Signed Impressions: Service Date/Time: Tuesday, May 23, 2017 03:20 - CONCLUSION: No acute disease. Nakul Rojo MD Neck CTA 05/23/17 0000 Signed Impressions: Service Date/Time: Tuesday, May 23, 2017 01:08 - CONCLUSION: Normal examination for a patient of this age. Nakul Rojo MD Head CTA 05/23/17 0000 Signed Impressions: Service Date/Time: Tuesday, May 23, 2017 01:05 - CONCLUSION: 1. No aneurysm identified on CTA brain. There is subarachnoid hemorrhage present. Nakul Rojo MD Laboratory Tests Test 05/25/17 04:29 White Blood Count 9.3 TH/MM3 Red Blood Count 3.93 MIL/MM3 Hemoglobin 12.8 GM/DL Hematocrit 38.0 % Mean Corpuscular Volume 96.6 FL Mean Corpuscular Hemoglobin 32.5 PG Mean Corpuscular Hemoglobin Concent 33.7 % Red Cell Distribution Width 14.1 % Platelet Count 196 TH/MM3 Mean Platelet Volume 7.5 FL Neutrophils (%) (Auto) 54.2 % Lymphocytes (%) (Auto) 38.5 % Monocytes (%) (Auto) 6.4 % Eosinophils (%) (Auto) 0.2 % Basophils (%) (Auto) 0.7 % Neutrophils # (Auto) 5.0 TH/MM3 Lymphocytes # (Auto) 3.6 TH/MM3 Monocytes # (Auto) 0.6 TH/MM3 Eosinophils # (Auto) 0.0 TH/MM3 Basophils # (Auto) 0.1 TH/MM3 CBC Comment AUTO DIFF Differential Comment AUTO DIFF CONFIRMED Hematology Comments Blood Urea Nitrogen 5 MG/DL Creatinine 0.67 MG/DL Random Glucose 81 MG/DL Calcium Level 8.0 MG/DL Magnesium Level 1.8 MG/DL Sodium Level 139 MEQ/L Potassium Level 4.2 MEQ/L Chloride Level 109 MEQ/L Carbon Dioxide Level 21.0 MEQ/L Anion Gap 9 MEQ/L Estimat Glomerular Filtration Rate 97 ML/MIN (Sarmad Tidwell) Medical Decision Making Impression and Plan A: 41 y/o FM with subarachnoid hemorrhage. Pt denies any history of trauma and not hypertensive. No aneurysm was fount on CTA brain. Follow up CT head showed resolving SAH. P: Angiogram results not available yet. Continue with close Neuro checks. Continue with Nimodipine Will keep low dose Morphine IV for breakthrough headaches. (Sarmad Tidwell) Attending Statement The exam, history, and the medical decision-making described in the above note were completed with the assistance of the mid-level provider. I reviewed and agree with the findings presented. I attest that I had a [id number] encounter with the patient on the same day, and personally performed and documented my assessment and findings in the medical record. Conventional cerebral angiogram is negative for any aneurysm. Relates headache is slightly better today. Continue with supportive care and increase activity status as tolerated. Recommended a follow-up CT angiogram of the head in 2 weeks which can be undertaken in [place] where she resides. (Shay Chadwick MD) Sarmad Tidwell May 25, 2017 13:03 Shay Chadwick MD May 25, 2017 17:08
--- NOTE | 2017-05-25 14:22 | RADRPT ---
EXAM DATE/TIME: 05/25/2017 08:08 [facility] COMPARISON: No previous studies available for comparison. INDICATIONS : Patient presents with subarachnoid hemorrhage in need of cerebral angiogram for anuerysm evaluation. MEDICAL HISTORY : SVT SURGICAL HISTORY : N/A ENCOUNTER: Initial ACUITY: 2 days PAIN SCORE: 4/10 LOCATION: Headache with low back pain. FLUORO TIME: 11.1 minutes IMAGE SERIES: 14 ACCESS SITE: Right Femoral artery SEDATION TIME: 45 minutes CONTRAST: 122 cc Visipaque (iodixanol) MEDICATION(S): 1.) 3 mg midazolam (Versed) IV 2.) 150 mcg fentanyl (Sublimaze) IV PROCEDURE : 1. Ultrasound-guided puncture of the access site. 2. Conscious sedation with continuous EKG and Oximetry monitoring. 3. Angiography of the right internal carotid artery 4. Angiography of the left internal carotid artery 5. Angiography of the right vertebral artery 6. Angiography of the left vertebral artery The risks, benefits and alternatives to the procedure were explained and verbal and written consent w as obtained. The site was prepped in sterile fashion. Full sterile technique was used, including ca p, mask, sterile gloves and gown and a large sterile sheet. Hand hygiene and 2% chlorhexidine and/or betadine/alcohol prep was utilized per protocol for cutaneous antisepsis. Sterile gel and sterile p robe cover were utilized for ultrasound guidance. The skin and subcutaneous tissues were infiltrated with local anesthetic solution. With ultrasound and fluoroscopic guidance the selected artery was punctured and a vascular sheath was placed A JB2 catheter was placed the right vertebral artery where AP, lateral oblique runs were obtained. Th e catheter was next placed into the right internal carotid artery where AP and lateral as well as rot ating digital subtraction angiography was performed. The catheter was next placed into the left inter nal carotid artery where again AP lateral and rotating digital subtraction angiography was performed. Finally the catheter was placed in the left vertebral artery where AP, lateral and oblique views wer e obtained. No aneurysm is identified. The cerebral circulation time is normal. The posterior fossa demonstrates codominant vertebral arteries. The puncture site was closed with manual pressure and hemostasis was obtained. The patient tolerated the procedure well and there were no complications. Conscious sedation was performed with the prescribed dosages and duration as above in the presence of an independent trained radiology nurse to assist in the monitoring of the patient. EKG and oximetry remained stable throughout the procedure. CONCLUSION: 1. Negative cerebral angiogram without evidence of aneurysm Tip Huffman MD on May 25, 2017 at 14:00 Board Certified Radiologist. This report was verified electronically.
--- NOTE | 2017-05-25 15:18 | HHI.CCPN ---
Subjective Remarks/Hospital Course 05/23: 41-year-old female. Past medical history complains of having sudden onset headache while climbing stairs. Patient flew down from [facility] today. The patient has no history of head trauma, no history of aneurysms or bleeding dyscrasias, no family history of same. Patient denies any focal weakness numbness or tingling. Headache is frontal. Denies any photophobia no seizure activity. Patient has no fever no chills no rashes no stiff neck. Head CT done in the ER revealed subarachnoid hemorrhage. CTA brain ordered. Neurosurgery was contacted by ER physician already. Patient accepted for admission by critical care medicine service. I evaluated the patient in the ER. At that time she was laying in the ER stretcher, complaining of a headache for out of 10 in intensity. Denied any visual or speech disturbance or any focal weakness involving her extremities. Denied any paresthesias. She did have nausea earlier. 05/24: No events over the night. Patient still c/o NICOLE and some nausea and vomiting. No other complaints. Repeat CT head in AM with improved SAH. 05/25: Patient did well over the night. She still has some NICOLE but improved. Nausea is improved as well. Tmax 98.8. No other complaints. Objective Vital Signs Date Time Temp Pulse Resp B/P (MAP) Pulse Ox O2 Delivery O2 Flow Rate FiO2 05/25/17 13:24 85 20 108/68 (81) 97 05/25/17 12:00 98.0 05/25/17 07:00 Room Air 05/24/17 19:00 2.00 21 Intake and Output 05/25/17 05/25/17 05/26/17 08:00 16:00 00:00 Intake Total 1000 ml Balance 1000 ml Result Diagram: 05/25/17 0429 05/25/17 0429 Imaging Head CTA: No aneurysm identified on CTA brain. There is subarachnoid hemorrhage present. Last [address] 05/24/17 0600 Signed Impressions: Service Date/Time: Wednesday, May 24, 2017 04:22 - CONCLUSION: 1. Interval improvement sub-arachnoid hemorrhage with minimal residual. 2. No new hemorrhage or mass effect. Tony Gabriel MD Objective Remarks Physical Exam General - middle age lady, awake, in no distress HEENT - pupils are equal, reactive, sclerae are anicteric, neck is supple, no rigidity, no JVD, MMM, no thrush CV - regular heart sounds, no murmurs Chest - clear b/l, good air entry, no wheezes Abdomen - soft, non-tender, not distended, BS present Skin - no rashes Extremities - warm, no edema, + peripheral pulses, no clubbing Neuro - awake, alert and oriented X 3, motor 5/5 over all extremities, sensation is intact, no pronator drift, smile symmetric, EOMI, tongue midline, shrugs shoulders, speech and hearing intact A/P Assessment and Plan 1. Spontaneous subarachnoid hemorrhage. Had angio done today w/o evidence of aneurysm 2. Hypothyroidism 3. History of SVT Plan: 1. HOB elevation, maintain normothermia, avoid agitation 2. Nimodipine 3. Will d/w NS regarding TCD's 4. Stat CTH with any change in neuro status 5. Neuro checks 6. Glycemic control 7. Pepcid, SCDs. No heparin or Lovenox in view of subarachnoid hemorrhage till cleared by neurosurgery 8. On pain meds 9. Home atenolol on hold due to borderline BP with nimodipine. Will restart once BP better or off nimodipine 10. On Levothyroxine Jacinto Jonas MD May 25, 2017 15:18
[2017-05-26] VITALS (13 sets, daily range): BP systolic 98–121; BP diastolic 57–87; PULSE 72–93; RESP 16–21; TEMP 97.8–98.7; O2SAT 95–100
[2017-05-26] MEDS: CHLORHEXIDINE GLUCONATE 2 % 1 PACK (2 CLOTHS) TOP SCH (03:46)
[2017-05-26] MEDS: niMODipine 30 MG CAP PO SCH ×6 (03:46→21:01)
[2017-05-26] MEDS: MORPHINE SULFATE 2 MG/ML INJ IV PUSH PRN (03:47)
[2017-05-26] MEDS: ONDANSETRON HCL 4 MG/2 ML VIAL IV PUSH PRN (03:47)
[2017-05-26 05:33] LABS: AUTOMATED NEUTROPHIL # 5.5 TH/MM3 (1.8-7.7); BASOPHIL # 0.1 TH/MM3 (0-0.2); BASOPHIL % 0.7 % (0.0-2.0); HEMATOCRIT 36.9 % (35.0-46.0); HEMOGLOBIN 12.4 GM/DL (11.6-15.3); LYMPH % 29.4 % (9.0-44.0); LYMPHOCYTE # 2.5 TH/MM3 (1.0-4.8); MEAN CELL VOLUME 95.3 FL (80.0-100.0); MEAN CORPUSCULAR HGB CONC 33.6 % (32.0-36.0); MONO % 5.8 % (0.0-8.0); MONOCYTE # 0.5 TH/MM3 (0-0.9); NEUT % 64.1 % (16.0-70.0); PLATELET COUNT 259 TH/MM3 (150-450); RED BLOOD COUNT 3.87 MIL/MM3 (4.00-5.30); RED CELL DISTRIBUTION WIDTH 13.7 % (11.6-17.2); WHITE BLOOD COUNT 8.5 TH/MM3 (4.0-11.0)
[2017-05-26 05:50] LABS: BICARBONATE 27.3 MEQ/L (21.0-32.0); CALCIUM 8.3 MG/DL (8.5-10.1); CREATININE 0.68 MG/DL (0.50-1.00); MAGNESIUM 1.7 MG/DL (1.5-2.5)
[2017-05-26] MEDS: LEVOTHYROXINE SODIUM 100 MCG TAB PO SCH (06:37)
[2017-05-26] MEDS: DOCUSATE SODIUM 50 MG/SENNA 8.6 MG TAB PO SCH ×2 (09:00→20:59)
[2017-05-26] MEDS: FAMOTIDINE 20 MG/2 ML VIAL IV PUSH SCH ×3 (09:00→20:58)
[2017-05-26] MEDS: VENLAFAXINE HCL XR 75 MG CAP PO SCH (10:44)
[2017-05-26] MEDS: NS + KCL 20 MEQ INJ 1,000 ML IV SCH (10:55)
--- NOTE | 2017-05-26 10:55 | HHI.NSPN ---
(Sarmad Tidwell) History Chief Complaint: Severe headache (Sarmad Tidwell) Interval History 05/24/17: Pt complains of headaches intermittently frontal area with periods of nausea. She states the pain medication and antiemetics help. No muscle weakness on one side versus the other. No numbness or paresthesias in face or extremities. 05/25/17: Pt awake. Returned from angiogram. Complains of headache occipital area radiating into the eyes. No nausea. Pt states she needs something stronger than Tylenol for pain. No paresthesias in face or extremities. No weakness in extremities. 05/26/17: Pt awake and alert. States headaches doing better. No nausea or vomiting. No paresthesias or weakness in extremities. (Sarmad Tidwell) Review of Systems General: Negative for: fever, chills, insomnia Respiratory: Negative for: shortness of breath, cough, sputum Cardiovascular: Negative for: chest pain Gastrointestinal: Negative for: nausea, vomitting, diarrhea, constipation ( Sarmad Tidwell) Exam Results Vital Signs Date Time Temp Pulse Resp B/P (MAP) Pulse Ox O2 Delivery O2 Flow Rate FiO2 05/26/17 10:00 77 05/26/17 07:00 95 Room Air 2.00 21 05/26/17 04:00 98.7 18 98/57 (71) (Sarmad Tidwell) Physical Examination General: Pt awake and alert resting in bed with stable vitals. Eyes: Pupils equal. Sclera anicteric. Resp: CTA bilaterally Heart: NSR no murmurs Abd: Soft positive bs Skin: No cyanosis or erythema Muscle: Moves all 4 extremities symmetrically with 5/5 strength. Neuro: Pt awake and alert. laying in bed. Speech is clear and fluent. Pupils 3mm bilaterally reactive bilaterally. Follows commands well. Face symmetric. (Sarmad Tidwell) Lab, Micro, Other Results Last Impressions Cerebral Arteriogram 05/25/17 0600 Signed Impressions: Service Date/Time: Thursday, May 25, 2017 08:08 - CONCLUSION: 1. Negative cerebral angiogram without evidence of aneurysm Tip Huffman MD Head CT 05/24/17 0600 Signed Impressions: Service Date/Time: Wednesday, May 24, 2017 04:22 - CONCLUSION: 1. Interval improvement sub-arachnoid hemorrhage with minimal residual. 2. No new hemorrhage or mass effect. Tony Gabriel MD Chest X-Ray 05/23/17 0600 Signed Impressions: Service Date/Time: Tuesday, May 23, 2017 03:20 - CONCLUSION: No acute disease. Nakul Rojo MD Neck CTA 05/23/17 0000 Signed Impressions: Service Date/Time: Tuesday, May 23, 2017 01:08 - CONCLUSION: Normal examination for a patient of this age. Nakul Rojo MD Head CTA 05/23/17 0000 Signed Impressions: Service Date/Time: Tuesday, May 23, 2017 01:05 - CONCLUSION: 1. No aneurysm identified on CTA brain. There is subarachnoid hemorrhage present. Nakul Rojo MD Laboratory Tests Test 05/26/17 04:45 White Blood Count 8.5 TH/MM3 Red Blood Count 3.87 MIL/MM3 Hemoglobin 12.4 GM/DL Hematocrit 36.9 % Mean Corpuscular Volume 95.3 FL Mean Corpuscular Hemoglobin 32.0 PG Mean Corpuscular Hemoglobin Concent 33.6 % Red Cell Distribution Width 13.7 % Platelet Count 259 TH/MM3 Mean Platelet Volume 7.0 FL Neutrophils (%) (Auto) 64.1 % Lymphocytes (%) (Auto) 29.4 % Monocytes (%) (Auto) 5.8 % Eosinophils (%) (Auto) 0.0 % Basophils (%) (Auto) 0.7 % Neutrophils # (Auto) 5.5 TH/MM3 Lymphocytes # (Auto) 2.5 TH/MM3 Monocytes # (Auto) 0.5 TH/MM3 Eosinophils # (Auto) 0.0 TH/MM3 Basophils # (Auto) 0.1 TH/MM3 CBC Comment DIFF FINAL Differential Comment Blood Urea Nitrogen 5 MG/DL Creatinine 0.68 MG/DL Random Glucose 89 MG/DL Calcium Level 8.3 MG/DL Magnesium Level 1.7 MG/DL Sodium Level 141 MEQ/L Potassium Level 3.9 MEQ/L Chloride Level 106 MEQ/L Carbon Dioxide Level 27.3 MEQ/L Anion Gap 8 MEQ/L Estimat Glomerular Filtration Rate 95 ML/MIN (Sarmad Tidwell) Medical Decision Making Impression and Plan A: 41 y/o FM with subarachnoid hemorrhage. Pt denies any history of trauma and not hypertensive. No aneurysm was fount on CTA brain or angiogram Follow up CT head showed resolving SAH. P: Continue to monitor in ICU for vasospasm. Continue with close Neuro checks. Continue with Nimodipine Will keep low dose Morphine IV for breakthrough headaches. Advance diet to regular. OOB to chair. (Sarmad Tidwell) Attending Statement The exam, history, and the medical decision-making described in the above note were completed with the assistance of the mid-level provider. I reviewed and agree with the findings presented. I attest that I had a [id number] encounter with the patient on the same day, and personally performed and documented my assessment and findings in the medical record. Overall improving headaches with stable neurologic examination. Ambulating the hallways. Continue with close observation. (Shay Chadwick MD) Sarmad Tidwell May 26, 2017 10:55 Shay Chadwick MD May 26, 2017 11:35
[2017-05-26] MEDS: SODIUM CHLORIDE 0.9% FLUSH 10 ML FLUSH IV FLUSH SCH ×2 (10:56→20:59)
--- NOTE | 2017-05-26 14:50 | HHI.CCPN ---
Subjective Remarks/Hospital Course 05/23: 41-year-old female. Past medical history complains of having sudden onset headache while climbing stairs. Patient flew down from [facility] today. The patient has no history of head trauma, no history of aneurysms or bleeding dyscrasias, no family history of same. Patient denies any focal weakness numbness or tingling. Headache is frontal. Denies any photophobia no seizure activity. Patient has no fever no chills no rashes no stiff neck. Head CT done in the ER revealed subarachnoid hemorrhage. CTA brain ordered. Neurosurgery was contacted by ER physician already. Patient accepted for admission by critical care medicine service. I evaluated the patient in the ER. At that time she was laying in the ER stretcher, complaining of a headache for out of 10 in intensity. Denied any visual or speech disturbance or any focal weakness involving her extremities. Denied any paresthesias. She did have nausea earlier. 05/24: No events over the night. Patient still c/o NICOLE and some nausea and vomiting. No other complaints. Repeat CT head in AM with improved SAH. 05/25: Patient did well over the night. She still has some NICOLE but improved. Nausea is improved as well. Tmax 98.8. No other complaints. 05/26: No events overnight. Headache slightly improved. No nausea, no vomiting. No other complaints. T-max 98.7. Objective Vital Signs Date Time Temp Pulse Resp B/P (MAP) Pulse Ox O2 Delivery O2 Flow Rate FiO2 05/26/17 12:00 78 05/26/17 08:00 97.8 16 102/57 (72) 100 05/26/17 07:00 Room Air 2.00 21 Result Diagram: 05/26/17 0445 05/26/17 0445 Imaging Head CTA: No aneurysm identified on CTA brain. There is subarachnoid hemorrhage present. Last [address] 05/24/17 0600 Signed Impressions: Service Date/Time: Wednesday, May 24, 2017 04:22 - CONCLUSION: 1. Interval improvement sub-arachnoid hemorrhage with minimal residual. 2. No new hemorrhage or mass effect. Tony Gabriel MD Objective Remarks Physical Exam General - middle age lady, awake, in no distress HEENT - pupils equal, reactive, sclerae anicteric, neck supple, no rigidity, neck veins not distended CV - regular S1-S2, no murmurs, no gallops Chest - clear b/l, good air entry, no wheezes Abdomen - soft, not distended, BS present, not tender Extremities - no edema, + peripheral pulses, warm and well-perfused Neuro - awake, alert and oriented X 3, motor 5/5 over all extremities, sensation is intact, no pronator drift, smile symmetric, EOMI, tongue midline, shrugs shoulders, speech and hearing intact A/P Assessment and Plan 1. Spontaneous subarachnoid hemorrhage, w/o evidence of aneurysm - doing well 2. Hypothyroidism 3. History of SVT Plan: 1. HOB elevation, maintain normothermia, avoid agitation 2. Nimodipine 3. D/w NS regarding TCD's, no need since this is not an aneurysmal bleed 4. Stat CTH with any change in neuro status 5. Neuro checks 6. Glycemic control 7. Pepcid, SCDs. No heparin or Lovenox in view of subarachnoid hemorrhage till cleared by neurosurgery 8. On pain meds 9. Home atenolol on hold due to borderline BP with nimodipine. Will restart once BP better or off nimodipine 10. On Levothyroxine Jacinto Jonas MD May 26, 2017 14:50
[2017-05-26] MEDS: ACETAMINOPHEN/HYDROcodone 325 MG/5 MG TAB PO PRN ×2 (14:52→20:59)
[2017-05-26] MEDS ORDERED: MAGNESIUM SULFATE 1 GM PREMIX 100 ML IV ONE (17:00)
[2017-05-26] MEDS: MELATONIN 5 MG TAB PO PRN (20:58)
[2017-05-27] VITALS (9 sets, daily range): BP systolic 99–169; BP diastolic 50–77; PULSE 72–95; RESP 12–22; TEMP 97.8–98.8; O2SAT 96–100
[2017-05-27] MEDS: niMODipine 30 MG CAP PO SCH ×6 (02:25→22:09)
[2017-05-27] MEDS: ACETAMINOPHEN/HYDROcodone 325 MG/5 MG TAB PO PRN ×2 (02:26→18:06)
[2017-05-27 04:41] LABS: AUTOMATED NEUTROPHIL # 4.3 TH/MM3 (1.8-7.7); BASOPHIL % 0.5 % (0.0-2.0); EOSINOPHIL % 0.2 % (0.0-4.0); HEMATOCRIT 36.8 % (35.0-46.0); HEMOGLOBIN 12.4 GM/DL (11.6-15.3); LYMPH % 36.2 % (9.0-44.0); LYMPHOCYTE # 2.7 TH/MM3 (1.0-4.8); MEAN CELL VOLUME 94.5 FL (80.0-100.0); MEAN CORPUSCULAR HEMOGLOBIN 31.9 PG (27.0-34.0); MEAN CORPUSCULAR HGB CONC 33.7 % (32.0-36.0); MEAN PLATELET VOLUME 6.6 FL (7.0-11.0); MONO % 6.6 % (0.0-8.0); MONOCYTE # 0.5 TH/MM3 (0-0.9); NEUT % 56.5 % (16.0-70.0); PLATELET COUNT 276 TH/MM3 (150-450); RED CELL DISTRIBUTION WIDTH 13.3 % (11.6-17.2); WHITE BLOOD COUNT 7.6 TH/MM3 (4.0-11.0)
[2017-05-27 05:07] LABS: BICARBONATE 29.9 MEQ/L (21.0-32.0); CALCIUM 8.4 MG/DL (8.5-10.1); CREATININE 0.71 MG/DL (0.50-1.00); MAGNESIUM 1.9 MG/DL (1.5-2.5)
[2017-05-27] MEDS: CHLORHEXIDINE GLUCONATE 2 % 1 PACK (2 CLOTHS) TOP SCH (05:13)
[2017-05-27] MEDS: LEVOTHYROXINE SODIUM 100 MCG TAB PO SCH (05:28)
[2017-05-27] MEDS: DOCUSATE SODIUM 50 MG/SENNA 8.6 MG TAB PO SCH ×2 (09:00→22:09)
[2017-05-27] MEDS: FAMOTIDINE 20 MG/2 ML VIAL IV PUSH SCH (09:54)
[2017-05-27] MEDS: VENLAFAXINE HCL XR 75 MG CAP PO SCH (09:55)
[2017-05-27] MEDS: SODIUM CHLORIDE 0.9% FLUSH 10 ML FLUSH IV FLUSH SCH ×2 (09:55→22:10)
--- NOTE | 2017-05-27 10:02 | HHI.NSPN ---
(Sarmad Tidwell) History Chief Complaint: Severe headache (Sarmad Tidwell) Interval History 05/24/17: Pt complains of headaches intermittently frontal area with periods of nausea. She states the pain medication and antiemetics help. No muscle weakness on one side versus the other. No numbness or paresthesias in face or extremities. 05/25/17: Pt awake. Returned from angiogram. Complains of headache occipital area radiating into the eyes. No nausea. Pt states she needs something stronger than Tylenol for pain. No paresthesias in face or extremities. No weakness in extremities. 05/26/17: Pt awake and alert. States headaches doing better. No nausea or vomiting. No paresthesias or weakness in extremities. 05/27/17: Pt awake and alert. Mild headaches. No nausea or vomiting. She is tolerating diet now. (Sarmad Tidwell) Review of Systems General: Negative for: fever, chills, insomnia Respiratory: Negative for: shortness of breath, cough, sputum Cardiovascular: Negative for: chest pain Gastrointestinal: Negative for: nausea, vomitting, diarrhea, constipation ( Sarmad Tidwell) Exam Results Vital Signs Date Time Temp Pulse Resp B/P (MAP) Pulse Ox O2 Delivery O2 Flow Rate FiO2 05/27/17 08:00 80 05/27/17 07:00 100 Room Air 21 05/27/17 04:00 97.8 12 169/66 (100) 05/26/17 19:00 2.00 Intake and Output 05/27/17 05/27/17 05/28/17 08:00 16:00 00:00 Output Total 300 ml Balance -300 ml (Sarmad Tidwell) Physical Examination General: Pt awake and alert resting in bed with stable vitals. Eyes: Pupils equal. Sclera anicteric. Resp: CTA bilaterally Heart: NSR no murmurs Abd: Soft positive bs Skin: No cyanosis or erythema Muscle: Moves all 4 extremities symmetrically with 5/5 strength. Neuro: Pt awake and alert. laying in bed. Speech is clear and fluent. Pupils 3mm bilaterally reactive bilaterally. Follows commands well. Face symmetric. (Sarmad Tidwell) Lab, Micro, Other Results Last Impressions Cerebral Arteriogram 05/25/17 0600 Signed Impressions: Service Date/Time: Thursday, May 25, 2017 08:08 - CONCLUSION: 1. Negative cerebral angiogram without evidence of aneurysm Tip Huffman MD Head CT 05/24/17 0600 Signed Impressions: Service Date/Time: Wednesday, May 24, 2017 04:22 - CONCLUSION: 1. Interval improvement sub-arachnoid hemorrhage with minimal residual. 2. No new hemorrhage or mass effect. Tony Gabriel MD Chest X-Ray 05/23/17 06 Signed Impressions: Service Date/Time: Tuesday, May 23, 2017 03:20 - CONCLUSION: No acute disease. Nakul Rojo MD Neck CTA 05/23/17 0000 Signed Impressions: Service Date/Time: Tuesday, May 23, 2017 01:08 - CONCLUSION: Normal examination for a patient of this age. Nakul Rojo MD Head CTA 05/23/17 0000 Signed Impressions: Service Date/Time: Tuesday, May 23, 2017 01:05 - CONCLUSION: 1. No aneurysm identified on CTA brain. There is subarachnoid hemorrhage present. Nakul Rojo MD Laboratory Tests Test 05/27/17 04:13 White Blood Count 7.6 TH/MM3 Red Blood Count 3.90 MIL/MM3 Hemoglobin 12.4 GM/DL Hematocrit 36.8 % Mean Corpuscular Volume 94.5 FL Mean Corpuscular Hemoglobin 31.9 PG Mean Corpuscular Hemoglobin Concent 33.7 % Red Cell Distribution Width 13.3 % Platelet Count 276 TH/MM3 Mean Platelet Volume 6.6 FL Neutrophils (%) (Auto) 56.5 % Lymphocytes (%) (Auto) 36.2 % Monocytes (%) (Auto) 6.6 % Eosinophils (%) (Auto) 0.2 % Basophils (%) (Auto) 0.5 % Neutrophils # (Auto) 4.3 TH/MM3 Lymphocytes # (Auto) 2.7 TH/MM3 Monocytes # (Auto) 0.5 TH/MM3 Eosinophils # (Auto) 0.0 TH/MM3 Basophils # (Auto) 0.0 TH/MM3 CBC Comment DIFF FINAL Differential Comment Blood Urea Nitrogen 8 MG/DL Creatinine 0.71 MG/DL Random Glucose 85 MG/DL Calcium Level 8.4 MG/DL Magnesium Level 1.9 MG/DL Sodium Level 138 MEQ/L Potassium Level 3.9 MEQ/L Chloride Level 104 MEQ/L Carbon Dioxide Level 29.9 MEQ/L Anion Gap 4 MEQ/L Estimat Glomerular Filtration Rate 91 ML/MIN (Sarmad Tidwell) Medical Decision Making Impression and Plan A: 41 y/o FM with subarachnoid hemorrhage. Pt denies any history of trauma and not hypertensive. No aneurysm was fount on CTA brain or angiogram Follow up CT head showed resolving SAH. P: Transfer to N. Continue with Neuro checks. Continue with Nimodipine Will keep low dose Morphine IV for breakthrough headaches OOB to chair/ Continue to ambulate. (Sarmad Tidwell) Attending Statement The exam, history, and the medical decision-making described in the above note were completed with the assistance of the mid-level provider. I reviewed and agree with the findings presented. I attest that I had a [id number] encounter with the patient on the same day, and personally performed and documented my assessment and findings in the medical record. Mild headache. No focal neurologic deficits. Continue with the neuro checks and observation and increase activity status as tolerated. (Shay Chadwick MD) Sarmad Tidwell May 27, 2017 10:02 Shay Chadwick MD May 27, 2017 14:41
--- NOTE | 2017-05-27 10:49 | HHI.CCPN ---
Subjective Remarks/Hospital Course 05/23: 41-year-old female. Past medical history complains of having sudden onset headache while climbing stairs. Patient flew down from [facility] today. The patient has no history of head trauma, no history of aneurysms or bleeding dyscrasias, no family history of same. Patient denies any focal weakness numbness or tingling. Headache is frontal. Denies any photophobia no seizure activity. Patient has no fever no chills no rashes no stiff neck. Head CT done in the ER revealed subarachnoid hemorrhage. CTA brain ordered. Neurosurgery was contacted by ER physician already. Patient accepted for admission by critical care medicine service. I evaluated the patient in the ER. At that time she was laying in the ER stretcher, complaining of a headache for out of 10 in intensity. Denied any visual or speech disturbance or any focal weakness involving her extremities. Denied any paresthesias. She did have nausea earlier. 05/24: No events over the night. Patient still c/o NICOLE and some nausea and vomiting. No other complaints. Repeat CT head in AM with improved SAH. 05/25: Patient did well over the night. She still has some NICOLE but improved. Nausea is improved as well. Tmax 98.8. No other complaints. 05/26: No events overnight. Headache slightly improved. No nausea, no vomiting. No other complaints. T-max 98.7. 05/27: Patient doing well, headache resolved, no nausea no vomiting. No other complaints. T-max 98.7. Good spirits. Objective Vital Signs Date Time Temp Pulse Resp B/P (MAP) Pulse Ox O2 Delivery O2 Flow Rate FiO2 05/27/17 08:00 80 05/27/17 07:00 100 Room Air 21 05/27/17 04:00 97.8 12 169/66 (100) 05/26/17 19:00 2.00 Intake and Output 05/27/17 05/27/17 05/28/17 08:00 16:00 00:00 Output Total 300 ml Balance -300 ml Result Diagram: 05/27/17 0413 05/27/17 0413 Imaging Head CTA: No aneurysm identified on CTA brain. There is subarachnoid hemorrhage present. Last [address] 05/24/17 0600 Signed Impressions: Service Date/Time: Wednesday, May 24, 2017 04:22 - CONCLUSION: 1. Interval improvement sub-arachnoid hemorrhage with minimal residual. 2. No new hemorrhage or mass effect. Tony Gabriel MD Objective Remarks Physical Exam General - middle age lady, awake, in no distress HEENT - pupils are equal, and reactive, sclerae are anicteric, neck is supple, no rigidity, no JVD CV - regular heart sounds, no murmurs, no gallops Chest - clear b/l, good air entry, no wheezes Abdomen - soft, not distended, not tender, BS present Extremities - no edema, + peripheral pulses, warm Neuro - awake, alert and oriented X 3, no pronator drift, smile symmetric, EOMI , tongue midline, shrugs shoulders, speech and hearing intact, motor 5/5 over all extremities, sensation is intact A/P Assessment and Plan 1. Spontaneous subarachnoid hemorrhage, w/o evidence of aneurysm - doing well 2. Hypothyroidism 3. History of SVT Plan: 1. HOB elevation, maintain normothermia, avoid agitation 2. Nimodipine per neurosurgery 3. D/w NS regarding TCD's, no need since this is not an aneurysmal bleed 4. Stat CTH with any change in neuro status 5. Neuro checks 6. Glycemic control 7. Pepcid, SCDs. No heparin or Lovenox in view of subarachnoid hemorrhage till cleared by neurosurgery 8. On pain meds 9. Home atenolol on hold due to borderline BP with nimodipine. Will restart once BP better or off nimodipine 10. On Levothyroxine Discussed with neurosurgery and patient is okay to be transferred to the neuro floor. We will ask hospitalist to take over medical management. Jacinto Jonas MD May 27, 2017 10:49
[2017-05-27] MEDS: MELATONIN 5 MG TAB PO PRN (22:08)
--- NOTE | 2017-05-27 22:16 | HHI.PR ---
Subjective Remarks NOT SEEN Objective Vitals Vital Signs Date Time Temp Pulse Resp B/P (MAP) Pulse Ox O2 Delivery O2 Flow Rate FiO2 05/27/17 20:56 98.1 95 20 118/70 (86) 97 05/27/17 17:41 98.8 92 18 122/77 (92) 96 05/27/17 16:00 97.9 80 22 108/66 (80) 100 05/27/17 16:00 78 05/27/17 14:23 22 05/27/17 12:00 97.8 78 22 99/56 (70) 100 05/27/17 12:00 78 05/27/17 08:00 97.8 78 22 100/50 (67) 100 05/27/17 08:00 80 05/27/17 07:00 100 Room Air 21 05/27/17 06:00 74 05/27/17 04:00 97.8 72 12 169/66 (100) 100 05/27/17 04:00 72 05/27/17 02:00 81 05/27/17 00:00 74 05/27/17 00:00 97.8 73 17 118/70 (86) 98 I/O 05/26/17 05/26/17 05/26/17 05/27/17 05/27/17 05/27/17 07:00 15:00 23:00 07:00 15:00 23:00 Intake Total 1952 ml Output Total 300 ml Balance 1952 ml -300 ml Intake Oral 1200 ml IV Total 752 ml Output Urine Total 300 ml Stool Total 0 ml # Voids 1 6 1 # Bowel Movements 0 Result Diagram: 05/27/1741205/27/17412 Objective Remarks General - middle age lady, awake, in no distress HEENT - pupils are equal, and reactive, sclerae are anicteric, neck is supple, no rigidity, no JVD CV - regular heart sounds, no murmurs, no gallops Chest - clear b/l, good air entry, no wheezes Abdomen - soft, not distended, not tender, BS present Extremities - no edema, + peripheral pulses, warm Neuro - awake, alert and oriented X 3, no pronator drift, smile symmetric, EOMI , tongue midline, shrugs shoulders, speech and hearing intact, motor 5/5 over all extremities, sensation is intact Procedures angiogram A/P Problem List: (1) Subarachnoid hemorrhage ICD Code: I60.9 - Nontraumatic subarachnoid hemorrhage, unspecified Status: Acute Assessment and Plan 1. Spontaneous subarachnoid hemorrhage, w/o evidence of aneurysm - doing well. Neuro checks. Ct N[facility], apin mgt and rehab 2. Hypothyroidism. Ct Synthroid 3. History of SVT. Stable restart BB if BP stable on nimotpp Discharge Planning Dc when cleared by Wilton Boogie MD May 27, 2017 22:16
[2017-05-28] VITALS (9 sets, daily range): BP systolic 97–118; BP diastolic 53–66; PULSE 61–100; RESP 16–20; TEMP 97.3–98.2; O2SAT 95–99
[2017-05-28] MEDS: niMODipine 30 MG CAP PO SCH ×6 (02:08→20:45)
[2017-05-28] MEDS: CHLORHEXIDINE GLUCONATE 2 % 1 PACK (2 CLOTHS) TOP SCH (04:00)
[2017-05-28] MEDS: LEVOTHYROXINE SODIUM 100 MCG TAB PO SCH (05:53)
[2017-05-28 07:58] LABS: AUTOMATED NEUTROPHIL # 4.5 TH/MM3 (1.8-7.7); BASOPHIL % 0.6 % (0.0-2.0); HEMATOCRIT 35.9 % (35.0-46.0); HEMOGLOBIN 12.2 GM/DL (11.6-15.3); LYMPH % 33.1 % (9.0-44.0); LYMPHOCYTE # 2.5 TH/MM3 (1.0-4.8); MEAN CELL VOLUME 94.2 FL (80.0-100.0); MEAN CORPUSCULAR HEMOGLOBIN 32.1 PG (27.0-34.0); MEAN CORPUSCULAR HGB CONC 34.1 % (32.0-36.0); MEAN PLATELET VOLUME 6.9 FL (7.0-11.0); MONOCYTE # 0.5 TH/MM3 (0-0.9); NEUT % 59.3 % (16.0-70.0); PLATELET COUNT 267 TH/MM3 (150-450); RED BLOOD COUNT 3.81 MIL/MM3 (4.00-5.30); RED CELL DISTRIBUTION WIDTH 13.4 % (11.6-17.2); WHITE BLOOD COUNT 7.6 TH/MM3 (4.0-11.0)
[2017-05-28] MEDS: VENLAFAXINE HCL XR 75 MG CAP PO SCH (07:59)
[2017-05-28] MEDS: DOCUSATE SODIUM 50 MG/SENNA 8.6 MG TAB PO SCH ×2 (07:59→20:45)
[2017-05-28] MEDS: SODIUM CHLORIDE 0.9% FLUSH 10 ML FLUSH IV FLUSH SCH ×2 (08:01→20:45)
[2017-05-28] MEDS: ACETAMINOPHEN/HYDROcodone 325 MG/5 MG TAB PO PRN ×3 (08:01→20:44)
[2017-05-28 08:23] LABS: CALCIUM 8.5 MG/DL (8.5-10.1); CREATININE 0.78 MG/DL (0.50-1.00); MAGNESIUM 1.8 MG/DL (1.5-2.5)
[2017-05-28] MEDS ORDERED: NIMO30CA3 PO (13:44)
[2017-05-28] MEDS ORDERED: HYDR-3516 PO (13:44)
[2017-05-28] MEDS ORDERED: PERI PO (13:44)
--- NOTE | 2017-05-28 13:44 | HHI.DCPOC ---
Discharge Care Plan Diagnosis: (1) Subarachnoid hemorrhage Your Health Problems Are: Difficulty with ADL Exercise Tolerance Goals to Promote Your Health * To prevent worsening of your condition and complications * To maintain your health at the optimal level Directions to Meet Your Goals Take your medications as prescribed Follow your dietary instruction Follow activity as directed Keep your appointments as scheduled Take your immunizations and boosters as scheduled If your symptoms worsen call your PCP, if no PCP go to Urgent Care Center or Emergency Room Smoking is Dangerous to Your Health. Avoid second hand smoke Call the 24-hour hour crisis hotline for domestic abuse at Wilton Gonzalez MD May 28, 2017 13:44
--- NOTE | 2017-05-28 13:48 | HHI.PR ---
Subjective Remarks Follow-up subarachnoid hemorrhage. Feeling much better complaints of mild frontal headache scale of 3 out of 10 denies dizziness, visual changes and weakness. She wants to go home. Discussed with nursing Objective Vitals Vital Signs Date Time Temp Pulse Resp B/P (MAP) Pulse Ox O2 Delivery O2 Flow Rate FiO2 05/28/17 12:09 97.9 100 18 113/66 (82) 95 05/28/17 10:17 98 05/28/17 08:31 97.3 70 18 101/55 (70) 98 05/28/17 08:05 Room Air 05/28/17 05:15 97.5 61 20 106/57 (73) 99 05/28/17 00:00 97.9 82 20 97/53 (68) 98 05/27/17 22:00 Room Air 05/27/17 20:56 98.1 95 20 118/70 (86) 97 05/27/17 17:41 98.8 92 18 122/77 (92) 96 05/27/17 16:00 97.9 80 22 108/66 (80) 100 05/27/17 16:00 78 05/27/17 14:23 22 I/O 05/27/17 05/27/17 05/27/17 05/28/17 05/28/17 05/28/17 07:00 15:00 23:00 07:00 15:00 23:00 Output Total 300 ml Balance -300 ml Output Urine Total 300 ml Stool Total 0 ml # Voids 1 Result Diagram: 05/28/17 0657 05/28/17 0657 Imaging Last Impressions Cerebral Arteriogram 05/25/17599 Signed Impressions: Service Date/Time: Thursday, May 25, 2017 08:08 - CONCLUSION: 1. Negative cerebral angiogram without evidence of aneurysm Tip Huffman MD Head CT 05/24/17599 Signed Impressions: Service Date/Time: Wednesday, May 24, 2017 04:22 - CONCLUSION: 1. Interval improvement sub-arachnoid hemorrhage with minimal residual. 2. No new hemorrhage or mass effect. Tony Gabriel MD Chest X-Ray 05/23/17599 Signed Impressions: Service Date/Time: Tuesday, May 23, 2017 03:20 - CONCLUSION: No acute disease. Nakul Rojo MD Neck CTA 05/23/17 0000 Signed Impressions: Service Date/Time: Tuesday, May 23, 2017 01:08 - CONCLUSION: Normal examination for a patient of this age. Nakul Rojo MD Head CTA 05/23/17 0000 Signed Impressions: Service Date/Time: Tuesday, May 23, 2017 01:05 - CONCLUSION: 1. No aneurysm identified on CTA brain. There is subarachnoid hemorrhage present. Nakul Rojo MD Objective Remarks General - middle age lady, awake, in no distress HEENT - pupils are equal, and reactive, sclerae are anicteric, neck is supple, no rigidity, no JVD CV - regular heart sounds, no murmurs, no gallops Chest - clear b/l, good air entry, no wheezes Abdomen - soft, not distended, not tender, BS present Extremities - no edema, + peripheral pulses, warm Neuro - awake, alert and oriented X 3, no pronator drift, smile symmetric, EOMI , tongue midline, shrugs shoulders, speech and hearing intact, motor 5/5 over all extremities, sensation is intact Procedures angiogram A/P Problem List: (1) Subarachnoid hemorrhage ICD Code: I60.9 - Nontraumatic subarachnoid hemorrhage, unspecified Status: Acute Assessment and Plan 1. Spontaneous subarachnoid hemorrhage, w/o evidence of aneurysm - doing well. Neuro checks. Ct [facility], pain mgt consult regarding narcotic and rehab 2. Hypothyroidism. Ct Synthroid 3. History of SVT. Stable restart BB if BP stable on nimotpp DVT prophylaxis with SCD and early ambulation. No chemical prophylaxis secondary to SAH Discharge Planning Dc when cleared by Wilton Boogie MD May 28, 2017 13:48
--- NOTE | 2017-05-28 15:16 | HHI.NSPN ---
(Sarmad Tidwell) History Chief Complaint: Severe headache (Sarmad Tidwell) Interval History 05/24/17: Pt complains of headaches intermittently frontal area with periods of nausea. She states the pain medication and antiemetics help. No muscle weakness on one side versus the other. No numbness or paresthesias in face or extremities. 05/25/17: Pt awake. Returned from angiogram. Complains of headache occipital area radiating into the eyes. No nausea. Pt states she needs something stronger than Tylenol for pain. No paresthesias in face or extremities. No weakness in extremities. 05/26/17: Pt awake and alert. States headaches doing better. No nausea or vomiting. No paresthesias or weakness in extremities. 05/27/17: Pt awake and alert. Mild headaches. No nausea or vomiting. She is tolerating diet now. 05/28/17: Pt awake and alert. Mild headaches. No nausea or vomiting and tolerating diet. Complains of tightness in bilateral thighs but no signs or symptoms of DVT. (Sarmad Tidwell) Exam Results Vital Signs Date Time Temp Pulse Resp B/P (MAP) Pulse Ox O2 Delivery O2 Flow Rate FiO2 05/28/17 12:09 97.9 100 18 113/66 (82) 95 05/28/17 08:05 Room Air 05/27/17 07:00 21 05/26/17 19:00 2.00 (Sarmad Tidwell) Physical Examination General: Pt awake and alert resting in bed with stable vitals. Eyes: Pupils equal. Sclera anicteric. Resp: CTA bilaterally Heart: NSR no murmurs Abd: Soft positive bs Skin: No cyanosis or erythema Muscle: Moves all 4 extremities symmetrically with 5/5 strength. Neuro: Pt awake and alert. laying in bed. Speech is clear and fluent. Pupils 3mm bilaterally reactive bilaterally. Follows commands well. Face symmetric. (Sarmad Tidwell) Lab, Micro, Other Results Last Impressions Cerebral Arteriogram 05/25/17 0600 Signed Impressions: Service Date/Time: Thursday, May 25, 2017 08:08 - CONCLUSION: 1. Negative cerebral angiogram without evidence of aneurysm Tip Huffman MD Head CT 05/24/17 0600 Signed Impressions: Service Date/Time: Wednesday, May 24, 2017 04:22 - CONCLUSION: 1. Interval improvement sub-arachnoid hemorrhage with minimal residual. 2. No new hemorrhage or mass effect. Tony Gabriel MD Chest X-Ray 05/23/17 06 Signed Impressions: Service Date/Time: Tuesday, May 23, 2017 03:20 - CONCLUSION: No acute disease. Nakul Rojo MD Neck CTA 05/23/17 0000 Signed Impressions: Service Date/Time: Tuesday, May 23, 2017 01:08 - CONCLUSION: Normal examination for a patient of this age. Nakul Rojo MD Head CTA 05/23/17 0000 Signed Impressions: Service Date/Time: Tuesday, May 23, 2017 01:05 - CONCLUSION: 1. No aneurysm identified on CTA brain. There is subarachnoid hemorrhage present. Nakul Rojo MD Laboratory Tests Test 05/28/17 06:57 White Blood Count 7.6 TH/MM3 Red Blood Count 3.81 MIL/MM3 Hemoglobin 12.2 GM/DL Hematocrit 35.9 % Mean Corpuscular Volume 94.2 FL Mean Corpuscular Hemoglobin 32.1 PG Mean Corpuscular Hemoglobin Concent 34.1 % Red Cell Distribution Width 13.4 % Platelet Count 267 TH/MM3 Mean Platelet Volume 6.9 FL Neutrophils (%) (Auto) 59.3 % Lymphocytes (%) (Auto) 33.1 % Monocytes (%) (Auto) 7.0 % Eosinophils (%) (Auto) 0.0 % Basophils (%) (Auto) 0.6 % Neutrophils # (Auto) 4.5 TH/MM3 Lymphocytes # (Auto) 2.5 TH/MM3 Monocytes # (Auto) 0.5 TH/MM3 Eosinophils # (Auto) 0.0 TH/MM3 Basophils # (Auto) 0.0 TH/MM3 CBC Comment DIFF FINAL Differential Comment Blood Urea Nitrogen 8 MG/DL Creatinine 0.78 MG/DL Random Glucose 99 MG/DL Calcium Level 8.5 MG/DL Magnesium Level 1.8 MG/DL Sodium Level 138 MEQ/L Potassium Level 3.6 MEQ/L Chloride Level 104 MEQ/L Carbon Dioxide Level 29.0 MEQ/L Anion Gap 5 MEQ/L Estimat Glomerular Filtration Rate 81 ML/MIN (Sarmad Tidwell) Medical Decision Making Impression and Plan A: 41 y/o FM with subarachnoid hemorrhage. Pt denies any history of trauma and not hypertensive. No aneurysm was fount on CTA brain or angiogram Follow up CT head showed resolving SAH. P: Follow up CT Pt has follow up with Neurosurgery in [place] on Wednesday. (Sarmad Tidwell) Attending Statement The exam, history, and the medical decision-making described in the above note were completed with the assistance of the mid-level provider. I reviewed and agree with the findings presented. I attest that I had a [id number] encounter with the patient on the same day, and personally performed and documented my assessment and findings in the medical record. (Shay Chadwick MD) Sarmad Tidwell May 28, 2017 15:16 Shay Chadwick MD May 28, 2017 16:11
--- NOTE | 2017-05-28 16:39 | RADRPT ---
EXAM DATE/TIME: 05/28/2017 16:10 [facility] COMPARISON: CT BRAIN W/O CONTRAST, May 24, 2017, 4:22. INDICATIONS : Follow up bleed. RADIATION DOSE: 42.21 CTDIvol (mGy) MEDICAL HISTORY : Cardiovascular disease. SURGICAL HISTORY : None. ENCOUNTER: Subsequent ACUITY: 1 week PAIN SCALE: 4/10 LOCATION: Bilateral cranial TECHNIQUE: Multiple contiguous axial images were obtained of the head. Using automated exposure control and adj ustment of the mA and/or kV according to patient size, radiation dose was kept as low as reasonably a chievable to obtain optimal diagnostic quality images. DICOM format image data is available electro nically for review and comparison. FINDINGS: There has been near complete interval resolution of subarachnoid blood. No new acute findings are jigna ntified. There is no evidence of intracranial mass. Nothing to suggest acute infarction. Ventricles a re stable symmetric and normal. Extracranial structures are benign and intact. CONCLUSION: Near-complete resolution of the subarachnoid blood. No new acute findings. Rickie Healy MD on May 28, 2017 at 16:36 Board Certified Radiologist. This report was verified electronically.
[2017-05-28] MEDS: MELATONIN 5 MG TAB PO PRN (20:44)
[2017-05-29] MEDS: CHLORHEXIDINE GLUCONATE 2 % 1 PACK (2 CLOTHS) TOP SCH (02:07)
[2017-05-29] MEDS: niMODipine 30 MG CAP PO SCH ×3 (02:07→09:59)
[2017-05-29] MEDS: LEVOTHYROXINE SODIUM 100 MCG TAB PO SCH (05:00)
[2017-05-29 05:02] VITALS: BP 109/62; PULSE 78; RESP 16; TEMP 97.8; O2SAT 98
[2017-05-29 08:00] VITALS: BP 104/61; PULSE 83; RESP 18; TEMP 98; O2SAT 97
[2017-05-29] MEDS: DOCUSATE SODIUM 50 MG/SENNA 8.6 MG TAB PO SCH (08:34)
[2017-05-29] MEDS: VENLAFAXINE HCL XR 75 MG CAP PO SCH (08:34)
[2017-05-29] MEDS: SODIUM CHLORIDE 0.9% FLUSH 10 ML FLUSH IV FLUSH SCH (08:36)
[2017-05-29] MEDS: ACETAMINOPHEN/HYDROcodone 325 MG/5 MG TAB PO PRN (09:59)
--- NOTE | 2017-05-29 10:00 | HHI.NSPN ---
(Sarmad Tidwell) History Chief Complaint: Severe headache (Sarmad Tidwell) Interval History 05/24/17: Pt complains of headaches intermittently frontal area with periods of nausea. She states the pain medication and antiemetics help. No muscle weakness on one side versus the other. No numbness or paresthesias in face or extremities. 05/25/17: Pt awake. Returned from angiogram. Complains of headache occipital area radiating into the eyes. No nausea. Pt states she needs something stronger than Tylenol for pain. No paresthesias in face or extremities. No weakness in extremities. 05/26/17: Pt awake and alert. States headaches doing better. No nausea or vomiting. No paresthesias or weakness in extremities. 05/27/17: Pt awake and alert. Mild headaches. No nausea or vomiting. She is tolerating diet now. 05/28/17: Pt awake and alert. Mild headaches. No nausea or vomiting and tolerating diet. Complains of tightness in bilateral thighs but no signs or symptoms of DVT. 12/27/17: Pt awake and alert. Mild headache. No nausea, vomiting, paresthesias in face or extremities. She complains of tightness in hamstrings that improves with walking. No calf pain, edema, or erythema in LEs. (Sarmad Tidwell) Review of Systems General: Negative for: fever, chills, insomnia Respiratory: Negative for: shortness of breath, cough, sputum Cardiovascular: Negative for: chest pain Gastrointestinal: Negative for: nausea, vomitting, diarrhea, constipation ( Sarmad Tidwell) Exam Results Vital Signs Date Time Temp Pulse Resp B/P (MAP) Pulse Ox O2 Delivery O2 Flow Rate FiO2 05/29/17 08:30 Room Air 05/29/17 08:00 98.0 83 18 104/61 (75) 97 05/28/17 17:09 21 05/26/17 19:00 2.00 (Sarmad Tidwell) Physical Examination General: Pt awake and alert resting in bed with stable vitals. Eyes: Pupils equal. Sclera anicteric. Resp: CTA bilaterally Heart: NSR no murmurs Abd: Soft positive bs Skin: No cyanosis or erythema Muscle: Moves all 4 extremities symmetrically with 5/5 strength. Neuro: Pt awake and alert. laying in bed. Speech is clear and fluent. Pupils 3mm bilaterally reactive bilaterally. Follows commands well. Face symmetric. (Sarmad Tidwell) Lab, Micro, Other Results Last Impressions Head CT 05/28/17 0000 Signed Impressions: Service Date/Time: Sunday, May 28, 2017 16:10 - CONCLUSION: Near- complete resolution of the subarachnoid blood. No new acute findings. Rickie Healy MD Cerebral Arteriogram 05/25/17 06 Signed Impressions: Service Date/Time: Thursday, May 25, 2017 08:08 - CONCLUSION: 1. Negative cerebral angiogram without evidence of aneurysm Tpi Huffman MD Chest X-Ray 05/23/17599 Signed Impressions: Service Date/Time: Tuesday, May 23, 2017 03:20 - CONCLUSION: No acute disease. Nakul Rojo MD Neck CTA 05/23/17 0000 Signed Impressions: Service Date/Time: Tuesday, May 23, 2017 01:08 - CONCLUSION: Normal examination for a patient of this age. Nakul Rojo MD Head CTA 05/23/17 0000 Signed Impressions: Service Date/Time: Tuesday, May 23, 2017 01:05 - CONCLUSION: 1. No aneurysm identified on CTA brain. There is subarachnoid hemorrhage present. Nakul Rojo MD (Sarmad Tidwell) Medical Decision Making Impression and Plan A: 41 y/o FM with subarachnoid hemorrhage. Pt denies any history of trauma and not hypertensive. No aneurysm was found on CTA brain or angiogram Follow up CT head showed nearly resolved SAH. P: D/C home Pt has follow up with Neurosurgery in [place] on Wednesday. Pt appreciative of care provided. (Sarmad Tidwell) Attending Statement The exam, history, and the medical decision-making described in the above note were completed with the assistance of the mid-level provider. I reviewed and agree with the findings presented. I attest that I had a [id number] encounter with the patient on the same day, and personally performed and documented my assessment and findings in the medical record. (Shay Chadwick MD) Sarmad Tidwell May 29, 2017 10:00 Shay Chadwick MD May 30, 2017 13:06
--- NOTE | 2017-05-29 10:17 | HHI.DS ---
Discharge Summary Admission Date May 23, 2017 at 00:41 Discharge Date: May 29, 2017 Admitting Diagnosis SubArachnoid Hemorrhage (1) Subarachnoid hemorrhage ICD Code: I60.9 - Nontraumatic subarachnoid hemorrhage, unspecified Diagnosis: Principal Status: Acute Procedures angiogram Brief History - From Admission HPI 41-year-old female. Past medical history complains of having sudden onset headache while climbing stairs. Patient flew [facility] today. The patient has no history of head trauma, no history of aneurysms or bleeding dyscrasias, no family history of same. Patient denies any focal weakness numbness or tingling. Headache is frontal. Denies any photophobia no seizure activity. Patient has no fever no chills no rashes no stiff neck. Head CT done in the ER revealed subarachnoid hemorrhage. CTA brain ordered. Neurosurgery was contacted by ER physician already. Patient accepted for admission by critical care medicine service. I evaluated the patient in the ER. At that time she was laying in the ER stretcher, complaining of a headache for out of 10 in intensity. Denied any visual or speech disturbance or any focal weakness involving her extremities. Denied any paresthesias. She did have nausea earlier. [facility] Past Medical History Narrative Medical Past medical history reviewed Cardiovascular Problems: Yes (SVT) Thyroid Disease: Yes (HYPO) Tetanus Vaccination: < 5 Years Influenza Vaccination: Yes ?: Not LMP: 05/21/17 Past Surgical History Surgical History: No Previous Surgery Social History Alcohol Use: Yes Tobacco Use: No Substance Use: No Allergies-Medications (Allergen,Severity, Reaction): Coded Allergies: No Known Allergies (Unverified , 05/22/17) Narrative Medication Allergies and medications reviewed Review of Systems Except as stated in HPI: all other systems reviewed are Neg General / Constitutional: No: Fever Eyes: No: Visual changes HENT: Positive: Headaches Cardiovascular: No: Chest Pain or Discomfort Respiratory: No: Shortness of Breath Gastrointestinal: No: Abdominal Pain Genitourinary: No: Dysuria Musculoskeletal: No: Pain Skin: No Rash Neurologic: No: Weakness Psychiatric: No: Depression Endocrine: No: Polydipsia Hematologic/Lymphatic: No: Easy Bruising CBC/BMP: 05/28/17 0657 05/28/17 0657 Significant Findings Laboratory Tests Test 05/27/17 04:13 05/28/17 06:57 Red Blood Count 3.90 MIL/MM3 (4.00-5.30) 3.81 MIL/MM3 (4.00-5.30) Mean Platelet Volume 6.6 FL (7.0-11.0) 6.9 FL (7.0-11.0) Calcium Level 8.4 MG/DL (8.5-10.1) Anion Gap 4 MEQ/L (5-15) Estimat Glomerular Filtration Rate 81 ML/MIN (>89) Imaging Last Impressions Head CT 05/28/17 0000 Signed Impressions: Service Date/Time: Sunday, May 28, 2017 16:10 - CONCLUSION: Near- complete resolution of the subarachnoid blood. No new acute findings. Rickie Healy MD Cerebral Arteriogram 05/25/17599 Signed Impressions: Service Date/Time: Thursday, May 25, 2017 08:08 - CONCLUSION: 1. Negative cerebral angiogram without evidence of aneurysm Tip Huffman MD Chest X-Ray 05/23/17599 Signed Impressions: Service Date/Time: Tuesday, May 23, 2017 03:20 - CONCLUSION: No acute disease. Nakul Rojo MD Neck CTA 05/23/17 Signed Impressions: Service Date/Time: Tuesday, May 23, 2017 01:08 - CONCLUSION: Normal examination for a patient of this age. Nakul Rojo MD Head CTA 05/23/17 Signed Impressions: Service Date/Time: Tuesday, May 23, 2017 01:05 - CONCLUSION: 1. No aneurysm identified on CTA brain. There is subarachnoid hemorrhage present. Nakul Rojo MD PE at Discharge General - middle age lady, awake, in no distress HEENT - pupils are equal, and reactive, sclerae are anicteric, neck is supple, no rigidity, no JVD CV - regular heart sounds, no murmurs, no gallops Chest - clear b/l, good air entry, no wheezes Abdomen - soft, not distended, not tender, BS present Extremities - no edema, + peripheral pulses, warm Neuro - awake, alert and oriented X 3, no pronator drift, smile symmetric, EOMI , tongue midline, shrugs shoulders, speech and hearing intact, motor 5/5 over all extremities, sensation is intact Hospital Course 1. Spontaneous subarachnoid hemorrhage, w/o evidence of aneurysm - doing well. Neuro checks. Ct Nimotop, pain mgt counselled regarding narcotic and rehab pt ambulatory 2. Hypothyroidism. Ct Synthroid 3. History of SVT. Stable restart BB if BP stable on nimotpp DVT prophylaxis with SCD and early ambulation. No chemical prophylaxis secondary to SAH Pt Condition on Discharge: Stable Discharge Disposition: Discharge Home Discharge Time: > 30 minutes Discharge Instructions DIET: Follow Instructions for: Heart Healthy Diet Activities you can perform: Regular-No Restrictions Activities to Avoid: Driving Follow up Referrals: Neurosurgery - 1 Week PCP Follow-up - 1 Week New Medications: Hydrocodone/Acetaminophen (Hydrocodone-Acetamin 5-325 mg) 5 Mg-325 Mg Tablet 1 TAB PO Q6H PRN for pain 3-10, #20 TAB Nimodipine (Nimodipine) 30 Mg Cap 60 MG PO Q4H for spasm, #96 CAP Sennosides-Docusate Sodium (Gnp Senna Plus 8.6-50 mg) 8.6 Mg-50 Mg Tab 1 TAB PO BID for Prevent Constipation, #60 TAB Continued Medications: Atenolol (Atenolol) 25 Mg Tab 25 MG PO BID for Blood Pressure Management, #60 TAB 0 Refills Levothyroxine (Levothyroxine) 100 Mcg Tab 100 MCG PO DAILY for Thyroid, #30 TAB 0 Refills Venlafaxine (Effexor) 75 Mg Tab 150 MG PO DAILY NEB, #120 TAB 0 Refills Wilton Gonzalez MD May 29, 2017 10:17
== END 2017-05-29 10:58 | disposition home or self-care (01) | DRG 66 ==
LOC: NEPC 23:54 → NEDA 05-23 00:41 → N03A 05-23 02:46 → N05A 05-27 17:00
PROVIDERS: ADMIT Internal Medicine; ATTEND Internal Medicine
DX: I60.9 Nontraumatic subarachnoid hemorrhage, unspecified (principal); E03.9 Hypothyroidism, unspecified; R11.2 Nausea with vomiting, unspecified
CPT/HCPCS: 36223; 36226; 70450; 70496; 70498; 71045; 80048; 80053; 83735; 84100; 84702; 85025; 85610; 85730; 87641; 93005; 96374; 96375; 99152; 99153; C1769; C1887; C1894; J1170; J1200; J2060; J2250; J2270; J2405; J2550; J2765; J3010; J3475; J3480; Q9967